=== PATIENT | female | born 1990 | race Caucasian/White ===

== ENCOUNTER 2019-08-25 15:45 | Emergency (ER) | payer SELFPAY ==
[2019-08-25 15:49] VITALS: BP 125/95; PULSE 84; RESP 16; TEMP 36.6; O2SAT 99; BMI 33.8
[2019-08-25 16:11] VITALS: O2SAT 98
[2019-08-25 16:18] LABS: Add Urine Microscopic? NO
[2019-08-25 16:25] LABS: Basophils % 0.2 %; Eosinophils # 0.1 10^3/uL (0.0-0.8); Hematocrit 42.6 % (37.0-47.0); Hemoglobin 13.2 g/dL (11.5-15.3); Lymphocytes % 33.1 %; Mean Corpuscular Hemoglobin 26.7 pg (28.0-34.0); Mean Corpuscular Volume 86.1 fL (81-99); Mean Platelet Volume 10.3 fL (7.4-10.4); Monocytes # 0.5 10^3/uL (0.2-0.9); Monocytes % 5.6 %; Neutrophils # 5.5 10^3/uL (1.8-7.7); Neutrophils % 59.8 %; Nucleated Red Blood Cells % 0 %; Platelet Count 321 10^3/cmm (130-400); Red Blood Count 4.95 10^6/uL (4.1-5.3); Red Cell Distribution Width 12.2 % (12.1-15.1); White Blood Count 9.2 10^3/uL (4.0-10.0)
--- NOTE | 2019-08-25 16:26 | W.ED.ABDPA2 ---
HPI - Abdominal Pain General: Chief Complaint: Abdominal Pain Stated Complaint: RIGHT UPPER ABD PAIN Time Seen by Provider: 08/25/19 16:18 History of Present Illness: HPI narrative: Pt has been having ruq abd pain since last night, states it goes around to the back, and it is much worse after food. No fever or chills. No vomiting but she has been nauseated and having anorexia. Has no appendix MD elicited complaint: abdominal pain Onset (ago): day(s) (1) Pain Consistency: constant Location: RUQ Severity: severe Pain scale (0-10): 7 Quality: sharp Radiation: R flank and back Exacerbating factors: eating and movement Relieving factors: nothing Associated Symptoms: Reports anorexia and nausea; Denies chills and fever(s) Related Data: Date of Last Menstrual Period: 08/01/19 Review of Systems General: Reports: 10 or more systems reviewed and unremarkable except in HPI and below Const: Denies: fever, chills or fatigue ENMT: Denies: throat pain Card: Denies: chest pain or swelling of feet/ankles Resp: Denies: shortness of breath or productive cough GI: Reports: abdominal pain and nausea : Denies: difficulty urinating Musc: Denies: back pain or extremity swelling Skin/Breast: Denies: rash Neuro: Denies: headache, numbness in extremities or weakness in extremities PFSH ED PFSH: Social History Smoking and tobacco status: never smoked Female Reproductive History: Date of last menstrual period: 08/01/19 Physical Exam Const: COMMON NORMALS: no apparent distress and oriented x3 GENERAL APPEARANCE: cooperative; not in distress HENMT: COMMON NORMALS: normocephalic HEAD & SCALP: normal to inspection and normocephalic MOUTH: oral and palatal mucosa normal and lip normal THROAT: posterior oropharynx normal and tonsils normal Neck/C-Spine: COMMON NORMALS: full ROM, no lymphadenopathy, supple and no meningeal signs GENERAL: Yes normal visual inspection and Yes trachea midline Chest: COMMONS NORMALS: inspection of chest normal Resp: COMMON NORMALS: normal respiratory effort and clear to auscultation bilaterally EFFORT & INSPECTION: Yes able to speak in complete sentences and No respiratory distress AUSCULTATION: clear to auscultation bilaterally, no rales, no rhonchi and no wheezes Cardio: COMMON NORMALS: regular rate, regular rhythm, S1 normal heart sound, S2 normal heart sound and no murmurs RATE: regular rate RHYTHM: regular rhythm HEART SOUNDS: S1 normal and S2 normal PERIPHERAL PULSES: radial pulses present and dorsalis pedis pulses present GI: COMMON NORMALS: soft to palpation INSPECTION: Yes normal to inspection AUSCULTATION: Yes hypoactive bowel sounds PALPATION: Yes soft, Yes tender Details: RUQ and No rebound tenderness present RECTAL EXAM: deferred : COMMON NORMALS: Yes no CVA tenderness BLADDER/KIDNEY EXAM: Yes no CVA tenderness Back/Pelvis: COMMON NORMALS: no CVA tenderness Extremity: COMMON NORMALS: normal to inspection, full ROM, normal capillary refill, no calf tenderness and no pedal edema Neuro: COMMON NORMALS: oriented x3, CN's II-XII intact bilaterally, moves all extremities and no focal motor deficits MENINGEAL SIGNS: Yes no meningeal signs Skin: COMMON NORMALS: no rashes or lesions noted GENERAL SKIN EXAM: no rashes or lesions noted Course Vital Signs: Vital signs: Vital Signs Temperature 97.9 F 08/25/19 15:49 Pulse Rate 83 08/25/19 17:56 Respiratory Rate 16 08/25/19 15:49 Blood Pressure 118/74 08/25/19 17:56 Pulse Oximetry 99 08/25/19 17:56 MDM - Abdominal Pain MDM Narrative: Medical decision making narrative: Pt has a gall stone but she is feeling much better, she is tolerating water and jello. I will refer to surgery as an outpt. She will go on a low fat diet and I will send her home with Hydrocodone and zofran. She knows to return if anything worsens. Lab Data: Attestation: I reviewed the patient's lab results. Labs: Lab Results 08/25/19 08/25/19 08/25/19 Range/Units 16:08 16:08 16:08 WBC 9.2 (4.0-10.0) 10^3/ uL RBC 4.95 (4.1-5.3) 10^6/u L Hgb 13.2 (11.5-15.3) g/dL Hct 42.6 (37.0-47.0) % MCV 86.1 (81-99) fL MCH 26.7 L (28.0-34.0) pg MCHC 31.0 (30.0-36.0) g/dL RDW 12.2 (12.1-15.1) % Plt Count 321 (130-400) 10^3/c mm MPV 10.3 (7.4-10.4) fL Neut % (Auto) 59.8 % Lymph % (Auto) 33.1 % [facility] % (Auto) 5.6 % Eos % (Auto) 1.0 % Baso % (Auto) 0.2 % Neut # (Auto) 5.5 (1.8-7.7) 10^3/u L Lymph # (Auto) 3.0 (0.8-4.8) 10^3/u L [facility] # (Auto) 0.5 (0.2-0.9) 10^3/u L Eos # (Auto) 0.1 (0.0-0.8) 10^3/u L Baso # (Auto) 0.0 (0.0-0.1) 10^3/u L Nucleated RBC % (a uto) 0 % Nucleated RBCs # 0.0 /100WBC Sodium (136-145) mmol/L Potassium (3.5-5.1) mmol/L Chloride (98-107) mmol/L Carbon Dioxide (22-29) mmol/L Anion Gap (5-19) BUN (6-20) mg/dL Creatinine (0.5-0.9) mg/dL GFR Calculation (90-130) mL/min Glucose (65-115) mg/dL Calculated Osmolal ity (285-295) mOsm/k g Calcium (8.5-10.5) mg/dL Total Bilirubin (0.15-1.2) mg/dL AST (0-32) U/L ALT (0-33) U/L Alkaline Phosphata se (35-105) IU/L Total Protein (6.6-8.7) g/dL Albumin (3.5-5.2) g/dL Globulin (1.3-4.6) g/dL HCG, Qual Negative (Negative) Urine Color Yellow (Yellow) Urine Appearance Clear (CLEAR) Urine pH 7 (5-7) Ur Specific Gravit y 1.005 (1.005-1.030) Urine Protein Neg (Negative) Urine Glucose (UA) Norm (Normal) Urine Ketones Negative (Negative) Urine Blood Neg (Negative) Urine Nitrate Negative (Negative) Urine Bilirubin Neg (NEGATIVE) Urine Urobilinogen Norm (Negative) mg/dL Ur Leukocyte Myah ase Negative (Negative) 08/25/19 Range/Units 16:08 WBC (4.0-10.0) 10^3/ uL RBC (4.1-5.3) 10^6/u L Hgb (11.5-15.3) g/dL Hct (37.0-47.0) % MCV (81-99) fL MCH (28.0-34.0) pg MCHC (30.0-36.0) g/dL RDW (12.1-15.1) % Plt Count (130-400) 10^3/c mm MPV (7.4-10.4) fL Neut % (Auto) % Lymph % (Auto) % [facility] % (Auto) % Eos % (Auto) % Baso % (Auto) % Neut # (Auto) (1.8-7.7) 10^3/u L Lymph # (Auto) (0.8-4.8) 10^3/u L [facility] # (Auto) (0.2-0.9) 10^3/u L Eos # (Auto) (0.0-0.8) 10^3/u L Baso # (Auto) (0.0-0.1) 10^3/u L Nucleated RBC % (a uto) % Nucleated RBCs # /100WBC Sodium 141 (136-145) mmol/L Potassium 4.0 (3.5-5.1) mmol/L Chloride 104 (98-107) mmol/L Carbon Dioxide 26 (22-29) mmol/L Anion Gap 15.0 (5-19) BUN 9 (6-20) mg/dL Creatinine 0.7 (0.5-0.9) mg/dL GFR Calculation 98.3 (90-130) mL/min Glucose 83 (65-115) mg/dL Calculated Osmolal ity 287 (285-295) mOsm/k g Calcium 10.3 (8.5-10.5) mg/dL Total Bilirubin 0.3 (0.15-1.2) mg/dL AST 36 H (0-32) U/L ALT 27 (0-33) U/L Alkaline Phosphata se 92 (35-105) IU/L Total Protein 8.7 (6.6-8.7) g/dL Albumin 4.9 (3.5-5.2) g/dL Globulin 3.8 (1.3-4.6) g/dL HCG, Qual (Negative) Urine Color (Yellow) Urine Appearance (CLEAR) Urine pH (5-7) Ur Specific Gravit y (1.005-1.030) Urine Protein (Negative) Urine Glucose (UA) (Normal) Urine Ketones (Negative) Urine Blood (Negative) Urine Nitrate (Negative) Urine Bilirubin (NEGATIVE) Urine Urobilinogen (Negative) mg/dL Ur Leukocyte Myah ase (Negative) Discharge Plan Discharge Prescriptions: No Action Tylenol 325 mg Tablet 325 mg PO QID PRN (Reason: Pain) RF: 0 Coding Level of Care Code ED Repair Electric Motor Assembler for Chg Fwd Exam Comprehensive
[2019-08-25 16:34] LABS: Bilirubin Urine Neg (NEGATIVE); Blood Urine Neg (Negative); Glucose Urine UA Norm (Normal); HCG Qualitative Urine. Negative (Negative); Ketones Urine Negative (Negative); Leukocyte Esterase Urine Negative (Negative); Nitrate Urine Negative (Negative); Protein Urine Neg (Negative); Specific Gravity, Urine 1.005 (1.005-1.030); Urine Appearance Clear (CLEAR); Urine Color Yellow (Yellow); Urobilinogen Urine Norm (Negative); pH Urine 7 (5-7)
--- NOTE | 2019-08-25 16:34 | US_ITS ---
WS: [id number] ULTRASOUND ABDOMEN LIMITED CLINICAL INFORMATION: right abd pain COMPARISON: None. FINDINGS: Liver Size: Normal. Craniocaudal length: 14.5 cm. Echogenicity: Normal. Surface nodularity: None. Mass (size and location): None. Bile ducts Intrahepatic ducts: Normal. Common bile duct diameter: 0.4 cm. Gallbladder Large calculus Gallstones: Present Gallbladder sludge: None. Gallbladder wall thickening: None. Pericholecystic fluid: None. Sonographic Segura sign: Absent. Pancreas Normal as visualized. Right kidney: Normal. Hydronephrosis: None. Size: 9.4 cm x 5.0 cm x 4.1 cm. Abdominal aorta and IVC Visualized portions are normal. Ascites: None. US/US gall bladder 75241 IMPRESSION: 1. Normal liver. 2. Large calculus in the gallbladder measuring approximately 2.3 CM. No signif icant gallbladder wall thickening or pericholecystic fluid. 3. Normal common bile duct. 4. No hydronephrosis in the right kidney.
[2019-08-25] MEDS: morphine 4 mg/mL SDV 1 mL IVP (16:44)
[2019-08-25] MEDS: ondansetron 2 mg/ML SDV 2 mL 4 MG IVP (16:44)
[2019-08-25 16:47] VITALS: BP 116/78; PULSE 78; O2SAT 100
[2019-08-25 16:56] LABS: Alanine Aminotransferase 27 U/L (0-33); Albumin Level 4.9 g/dL (3.5-5.2); Alkaline Phosphatase 92 IU/L (35-105); Aspartate Amino Transferase 36 U/L (0-32); Blood Urea Nitrogen 9 mg/dL (6-20); Calcium 10.3 mg/dL (8.5-10.5); Carbon Dioxide 26 mmol/L (22-29); Chloride 104 mmol/L (98-107); Globulin 3.8 g/dL (1.3-4.6); Glomerular Filtration Rate 98.3 mL/min (90-130); Glucose 83 mg/dL (65-115); Osmolality Calculated 287 mOsm/kg (285-295); Sodium 141 mmol/L (136-145); Total Bilirubin 0.3 mg/dL (0.15-1.2); Total Protein 8.7 g/dL (6.6-8.7)
--- NOTE | 2019-08-25 16:57 | PC.NURSE ---
portable ultrasound at bedside
[2019-08-25 17:56] VITALS: BP 118/74; PULSE 83; O2SAT 99
--- NOTE | 2019-08-25 18:04 | PC.NURSE ---
pt given PO clear liquids for PO challenge
[2019-08-25 18:25] VITALS: BP 123/71; PULSE 75; O2SAT 100
--- NOTE | 2019-08-26 14:49 | DCPLANNER ---
underwriting support manager had message to schedule a follow up appointment for patient with [facility]. underwriting support manager called the clinic, spoke with Rafaela, a follow up appointment was scheduled for August at 12:[address] Sauer. Clinic will call patient with appointment information.
--- NOTE | 2019-11-03 15:17 | DCPLANNER ---
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
== END 2019-08-25 18:25 | disposition home or self-care (01) ==
PROVIDERS: Emergency Provider Emergency Medicine; Family Provider Nurse Practitioner; PCP Nurse Practitioner
DX: K80.50 Calculus of bile duct without cholangitis or cholecystitis without obstruction (principal)
CPT/HCPCS: 12345; 76705; 80053; 81003; 81025; 85025; 96374; 96375; 99283; J2270; J2405

== ENCOUNTER 2019-08-26 13:33 | Emergency (ER) | payer SELFPAY ==
[2019-08-26 13:44] VITALS: BP 121/86; PULSE 95; RESP 18; TEMP 36.6; O2SAT 99; BMI 32.8
[2019-08-26 14:26] LABS: HCG Qualitative Urine. Negative (Negative)
[2019-08-26 14:41] LABS: Add Urine Microscopic? NO
[2019-08-26 14:48] LABS: Bilirubin Urine Neg (NEGATIVE); Blood Urine Neg (Negative); Glucose Urine UA Norm (Normal); Ketones Urine Negative (Negative); Leukocyte Esterase Urine Negative (Negative); Nitrate Urine Negative (Negative); Protein Urine Neg (Negative); Urine Appearance Clear (CLEAR); Urine Color Straw (Yellow); Urobilinogen Urine Norm (Negative); pH Urine 7 (5-7)
--- NOTE | 2019-08-26 14:51 | W.ED.ABDPA2 ---
HPI - Abdominal Pain General: Chief Complaint: Abdominal Pain Stated Complaint: abd pain Time Seen by Provider: 08/26/19 14:28 History of Present Illness: HPI narrative: 29-year-old female patient was seen in this emergency department yesterday for the same complaints. At that time her right upper quadrant ultrasound done revealed a gallstone. No cholecystitis at that time. She was discharged home with a prescription for hydrocodone/acetaminophen. Patient states that her pain persists, with eating or drinking anything. She says the pain medicine is not helping at this time. She denies fever, denies vomiting but has nausea. Denies diarrhea. MD elicited complaint: abdominal pain Pertinent past history: other (gall stone) Onset (ago): day(s) (1) Pain Consistency: constant Location: Epigastric and RUQ Severity: severe Quality: sharp Radiation: epigastric Exacerbating factors: eating Relieving factors: nothing Associated Symptoms: Reports anorexia and nausea; Denies chills, dysuria and fever(s) Treatments prior to arrival: prescription analgesics Related Data: Date of Last Menstrual Period: 08/01/19 Review of Systems General: Reports: 10 or more systems reviewed and unremarkable except in HPI and below Const: Denies: fever, chills or body aches Eyes: Denies: change in vision or blurry vision ENMT: Denies: throat pain, enlarged tonsils, painful swallowing, hoarseness, mouth pain or swelling of lips/tongue Card: Reports: chest pain; Denies: palpitations, irregular heart rhythm, edema or swelling of feet/ankles Resp: Denies: shortness of breath, productive cough or non-productive cough GI: Reports: abdominal pain and nausea : Denies: flank pain, difficulty urinating, painful urination, urinary frequency, urinary urgency or urinary hesitancy Musc: Denies: neck pain, back pain or extremity swelling Skin/Breast: Denies: rash, itching or redness Neuro: Denies: headache, numbness in extremities or weakness in extremities Endo: Denies: excessive urination, excessive thirst or tired all the time PFSH ED PFSH: Social History Smoking and tobacco status: never smoked Female Reproductive History: Date of last menstrual period: 08/01/19 Physical Exam Const: COMMON NORMALS: no apparent distress, average body habitus, oriented x3, no limitations, healthy appearing, alert and well nourished HENMT: COMMON NORMALS: normocephalic, head/scalp atraumatic and moist oral mucous membranes HEAD & SCALP: normocephalic and atraumatic Eye: COMMON NORMALS: PERRL, EOMs intact bilaterally, conjunctivae normal and no scleral icterus CONJUNCTIVA: Yes conjunctivae normal PUPIL: Yes PERRL Neck/C-Spine: COMMON NORMALS: full ROM, supple, no meningeal signs, no JVD and no carotid bruits Chest: COMMONS NORMALS: inspection of chest normal and palpation of chest normal Resp: COMMON NORMALS: normal respiratory effort, no retractions, no use of accessory muscles, clear to auscultation bilaterally and percussion normal AUSCULTATION: clear to auscultation bilaterally PERCUSSION: percussion normal Cardio: COMMON NORMALS: no JVD, regular rate, regular rhythm, S1 normal heart sound, S2 normal heart sound, no gallops, no clicks, no murmurs, no rub and peripheral pulses 2+ throughout RATE: regular rate RHYTHM: regular rhythm HEART SOUNDS: S1 normal and S2 normal PERIPHERAL PULSES: pulses 2+ throughout GI: COMMON NORMALS: normal to inspection, nondistended, normoactive bowel sounds, soft to palpation, no hepatosplenomegaly, no masses and no bruits PALPATION: Yes soft, Yes tender (epigastric. Positve Segura's sign) Details: RUQ and Yes no hepatosplenomegaly : COMMON NORMALS: Yes no CVA tenderness BLADDER/KIDNEY EXAM: Yes no CVA tenderness Back/Pelvis: COMMON NORMALS: no CVA tenderness Extremity: COMMON NORMALS: normal to inspection, full ROM, normal capillary refill, no calf tenderness and no pedal edema Neuro: COMMON NORMALS: oriented x3 SENSORIUM/ORIENTATION: Yes alert MENINGEAL SIGNS: Yes no meningeal signs Skin: COMMON NORMALS: no rashes or lesions noted, no wounds, skin turgor normal, no jaundice, no petechiae and no mottling GENERAL SKIN EXAM: no rashes or lesions noted and turgor normal Course Reevaluation(s): Reevaluation #1: Discussed her lab findings with her. White cell count normal, liver enzymes normal, lipase normal. She does not have cholecystitis or pancreatitis. I believe her pain is still secondary to the gallstones. She has an appointment with a surgeon in about a week. She is advised to eat a bland meal until then. She is also advised to double the dose of the hydrocodone until the pain is better. We will give her some Toradol to go home with. She voiced understanding and is in agreement with the plan Time: 16:09 Vital Signs: Vital signs: Vital Signs Temperature 97.9 F 08/26/19 13:44 Pulse Rate 95 08/26/19 13:44 Respiratory Rate 18 08/26/19 13:44 Blood Pressure 121/86 08/26/19 13:44 Pulse Oximetry 99 08/26/19 13:44 MDM - Abdominal Pain MDM Narrative: Medical decision making narrative: 29-year-old female patient with biliary colic. She was seen in the ED for the same thing yesterday and the ultrasound done showed gallstone with no inflammatory changes in her gallbladder. She presents today with continuation of the pain. She is not in distress on examination. Labs are unremarkable with normal white cell count and normal liver enzymes as well as lipase. She is discharged home with a prescription for ketorolac. She has an appointment scheduled to see the surgeon next . She understands that she has this appointment made. She will follow-up as scheduled Medical Records: Attestation: I reviewed the patient's medical records. Lab Data: Labs: Lab Results 08/26/19 08/26/19 08/26/19 Range/Units 14:07 14:07 14:07 WBC (4.0-10.0) 10^3/ uL RBC (4.1-5.3) 10^6/u L Hgb (11.5-15.3) g/dL Hct (37.0-47.0) % MCV (81-99) fL MCH (28.0-34.0) pg MCHC (30.0-36.0) g/dL RDW (12.1-15.1) % Plt Count (130-400) 10^3/c mm MPV (7.4-10.4) fL Neut % (Auto) % Lymph % (Auto) % [place] % (Auto) % Eos % (Auto) % Baso % (Auto) % Neut # (Auto) (1.8-7.7) 10^3/u L Lymph # (Auto) (0.8-4.8) 10^3/u L Sunflower # (Auto) (0.2-0.9) 10^3/u L Eos # (Auto) (0.0-0.8) 10^3/u L Baso # (Auto) (0.0-0.1) 10^3/u L Nucleated RBC % (a uto) % Nucleated RBCs # /100WBC Sodium (136-145) mmol/L Potassium (3.5-5.1) mmol/L Chloride (98-107) mmol/L Carbon Dioxide (22-29) mmol/L Anion Gap (5-19) BUN (6-20) mg/dL Creatinine (0.5-0.9) mg/dL GFR Calculation (90-130) mL/min Glucose (65-115) mg/dL Calculated Osmolal ity (285-295) mOsm/k g Lactate (0.5-2.2) mmol/L Calcium (8.5-10.5) mg/dL Total Bilirubin (0.15-1.2) mg/dL AST (0-32) U/L ALT (0-33) U/L Alkaline Phosphata se (35-105) IU/L Total Protein (6.6-8.7) g/dL Albumin (3.5-5.2) g/dL Globulin (1.3-4.6) g/dL Lipase (13-60) U/L HCG, Qual Negative (Negative) Urine Color Straw (Yellow) Urine Appearance Clear (CLEAR) Urine pH 7 (5-7) Ur Specific Gravit y 1.010 (1.005-1.030) Urine Protein Neg (Negative) Urine Glucose (UA) Norm (Normal) Urine Ketones Negative (Negative) Urine Blood Neg (Negative) Urine Nitrate Negative (Negative) Urine Bilirubin Neg (NEGATIVE) Urine Urobilinogen Norm (Negative) mg/dL Ur Leukocyte Myah ase Negative (Negative) Urine Opiates Scre en Positive H (Negative) ng/mL Ur Barbiturates Sc reen Negative (Negative) ng/mL Ur Phencyclidine S crn Negative (Negative) ng/mL Ur Amphetamines Sc reen Negative (Negative) ng/mL U Benzodiazepines Scrn Negative (Negative) ng/mL Urine Cocaine Scre en Negative (Negative) ng/mL U Marijuana (THC) Screen Negative (Negative) ng/mL 08/26/19 08/26/19 08/26/19 Range/Units 14:45 14:45 14:45 WBC 7.9 (4.0-10.0) 10^3/ uL RBC 4.81 (4.1-5.3) 10^6/u L Hgb 12.9 (11.5-15.3) g/dL Hct 41.6 (37.0-47.0) % MCV 86.5 (81-99) fL MCH 26.8 L (28.0-34.0) pg MCHC 31.0 (30.0-36.0) g/dL RDW 12.2 (12.1-15.1) % Plt Count 308 (130-400) 10^3/c mm MPV 10.0 (7.4-10.4) fL Neut % (Auto) 60.9 % Lymph % (Auto) 31.7 % Sunflower % (Auto) 5.7 % Eos % (Auto) 1.3 % Baso % (Auto) 0.3 % Neut # (Auto) 4.8 (1.8-7.7) 10^3/u L Lymph # (Auto) 2.5 (0.8-4.8) 10^3/u L Sunflower # (Auto) 0.5 (0.2-0.9) 10^3/u L Eos # (Auto) 0.1 (0.0-0.8) 10^3/u L Baso # (Auto) 0.0 (0.0-0.1) 10^3/u L Nucleated RBC % (a uto) 0 % Nucleated RBCs # 0.0 /100WBC Sodium 138 (136-145) mmol/L Potassium 4.1 (3.5-5.1) mmol/L Chloride 103 (98-107) mmol/L Carbon Dioxide 25 (22-29) mmol/L Anion Gap 14.1 (5-19) BUN 8 (6-20) mg/dL Creatinine 0.7 (0.5-0.9) mg/dL GFR Calculation 98.3 (90-130) mL/min Glucose 95 (65-115) mg/dL Calculated Osmolal ity 282 L (285-295) mOsm/k g Lactate 0.9 (0.5-2.2) mmol/L Calcium 9.7 (8.5-10.5) mg/dL Total Bilirubin 0.4 (0.15-1.2) mg/dL AST 30 (0-32) U/L ALT 29 (0-33) U/L Alkaline Phosphata se 80 (35-105) IU/L Total Protein 8.5 (6.6-8.7) g/dL Albumin 4.6 (3.5-5.2) g/dL Globulin 3.9 (1.3-4.6) g/dL Lipase 16 (13-60) U/L HCG, Qual (Negative) Urine Color (Yellow) Urine Appearance (CLEAR) Urine pH (5-7) Ur Specific Gravit y (1.005-1.030) Urine Protein (Negative) Urine Glucose (UA) (Normal) Urine Ketones (Negative) Urine Blood (Negative) Urine Nitrate (Negative) Urine Bilirubin (NEGATIVE) Urine Urobilinogen (Negative) mg/dL Ur Leukocyte Myah ase (Negative) Urine Opiates Scre en (Negative) ng/mL Ur Barbiturates Sc reen (Negative) ng/mL Ur Phencyclidine S crn (Negative) ng/mL Ur Amphetamines Sc reen (Negative) ng/mL U Benzodiazepines Scrn (Negative) ng/mL Urine Cocaine Scre en (Negative) ng/mL U Marijuana (THC) Screen (Negative) ng/mL Discharge Plan Discharge Patient Disposition: Home, Self-Care Clinical Impression: Biliary colic Cholelithiasis Qualifiers: Cholelithiasis location: gallbladder Cholecystitis presence: without cholecystitis Biliary obstruction: without biliary obstruction Qualified Code(s): K80.20 - Calculus of gallbladder without cholecystitis without obstruction Condition: Stable Prescriptions: New ketorolac 10 mg tablet 10 mg PO Q8H PRN (Reason: pain) Qty: 14 RF: 0 Continued Tylenol 325 mg Tablet 325 mg PO QID PRN (Reason: Pain) RF: 0 hydrocodone-acetaminophen 5-325 mg tablet 1 tab PO Q4H PRN (Reason: pain) Qty: 20 RF: 0 Zofran 4 mg tablet 4 mg PO Q8H PRN (Reason: nausea and vomiting) 5 Days Qty: 20 RF: 0 Discharge Orders: Discharge Order (Routine); Ordered 08/26/19 Ordered By: Mike Mejias Referrals: Juancarlos Urias, [facility] [Primary Care Provider] - Sanjay Sauer MD [Physician] - 09/01/19 12:00 pm (as scheduled) Discharge Diet: As Directed Discharge Activity: Increase activity as tolerated Patient Instructions: Cholecystitis (ED), Abdominal Pain (ED) Activity Restrictions/Additional Instructions: Return for any new or worsening symptoms. Follow-up with Dr. Sauer next as scheduled. Eat a bland diet to help with your pain. Take the ketorolac as needed for pain this will help with your gallbladder pain. Coding Level of Care Code ED Information Resource Consultant for Chg Fwd Exam Comprehensive
[2019-08-26 14:55] LABS: Amphetamines Screen Urine Negative (Negative); Barbiturates Screen Urine Negative (Negative); Benzodiazepines Screen Urine Negative (Negative); Cocaine Screen Urine Negative (Negative); Opiate Screen Urine Positive (Negative); PCP Screen Urine Negative (Negative); THC Screen Urine Negative (Negative)
[2019-08-26 14:56] LABS: Basophils % 0.3 %; Eosinophils # 0.1 10^3/uL (0.0-0.8); Eosinophils % 1.3 %; Hematocrit 41.6 % (37.0-47.0); Hemoglobin 12.9 g/dL (11.5-15.3); Lymphocytes # 2.5 10^3/uL (0.8-4.8); Lymphocytes % 31.7 %; Mean Corpuscular Hemoglobin 26.8 pg (28.0-34.0); Mean Corpuscular Volume 86.5 fL (81-99); Monocytes # 0.5 10^3/uL (0.2-0.9); Monocytes % 5.7 %; Neutrophils # 4.8 10^3/uL (1.8-7.7); Neutrophils % 60.9 %; Nucleated Red Blood Cells % 0 %; Platelet Count 308 10^3/cmm (130-400); Red Blood Count 4.81 10^6/uL (4.1-5.3); Red Cell Distribution Width 12.2 % (12.1-15.1); White Blood Count 7.9 10^3/uL (4.0-10.0)
[2019-08-26 15:10] LABS: Alanine Aminotransferase 29 U/L (0-33); Albumin Level 4.6 g/dL (3.5-5.2); Alkaline Phosphatase 80 IU/L (35-105); Anion Gap 14.1 (5-19); Aspartate Amino Transferase 30 U/L (0-32); Blood Urea Nitrogen 8 mg/dL (6-20); Calcium 9.7 mg/dL (8.5-10.5); Carbon Dioxide 25 mmol/L (22-29); Chloride 103 mmol/L (98-107); Globulin 3.9 g/dL (1.3-4.6); Glomerular Filtration Rate 98.3 mL/min (90-130); Glucose 95 mg/dL (65-115); Lactate (Lactic Acid level) 0.9 mmol/L (0.5-2.2); Lipase 16 U/L (13-60); Osmolality Calculated 282 mOsm/kg (285-295); Potassium 4.1 mmol/L (3.5-5.1); Sodium 138 mmol/L (136-145); Total Bilirubin 0.4 mg/dL (0.15-1.2); Total Protein 8.5 g/dL (6.6-8.7)
--- NOTE | 2019-08-26 15:49 | DCPLANNER ---
revenue manager has made an appointment for patient with [facility], due to an order from previous visit. An appointment is scheduled for August at 12:[address] Sauer. revenue manager did inform ED physician and patient about the scheduled appointment with [facility].
[2019-08-26 16:25] VITALS: BP 116/82; PULSE 75; O2SAT 96
== END 2019-08-26 16:25 | disposition home or self-care (01) ==
LOC: ER 16:18
PROVIDERS: Emergency Provider Family Medicine; Family Provider Nurse Practitioner; PCP Nurse Practitioner
DX: K80.20 Calculus of gallbladder without cholecystitis without obstruction (principal)
CPT/HCPCS: 12345; 36415; 80053; 80306; 81003; 81025; 83605; 83690; 85025; 87040; 99282; A9270

== ENCOUNTER 2019-08-31 05:54 | Day surgery (SDC) | payer SELFPAY ==
[2019-08-31] VITALS (8 sets, daily range): BP systolic 93–126; BP diastolic 54–99; PULSE 67–105; RESP 14–18; TEMP 36.9–37.2; O2SAT 93–100; BMI 33.5
[2019-08-31] MEDS: sodium chloride 0.9% 1,000 ML 30 ML IV (06:28)
[2019-08-31 06:29] LABS: OR HCG Qualitative Urine Negative (Negative)
--- NOTE | 2019-08-31 06:29 | P.ANESASSM_ITS ---
Pre-Anesthetic Assessment Pre-Anesthetic Assessment: Height/Weight: Height 1.6 m Weight 85.729 kg Preop Diagnosis: cholelithiasis Proposed Procedure: Operation Date: 08/31/19 07:20 Proposed Procedures p Laparoscopic [place] 78305 K80.20(Not Applicable) - Sanjay Sauer MD Familial anesthetic complications: None Was Beta Lexi taken within 24 hours: N/A Last intake: Intake Last Liquid Date 08/30/19 Last Liquid Time 22:15 Last Solid Date 08/30/19 Last Solid Time 20:30 Social: Social History: No alcohol and No tobacco Exam: Pre-Anes Outpt Exam: alert, oriented x 3, clear to auscultation bilat erally and regular rate & rhythm Airway: Cervical ROM: WNL MP: 3 Dentition: Full Additional comments: receding jaw Pulmonary: Pulmonary: None reported CV/HEM: CV/HEM: None reported : : None reported Hepatic: Hepatic: None reported GI: GI: None reported Metabolic: Metabolic: None reported Musc/skel: Musc/skel: None reported Neuropsych: Neuropsych: None reported Anesthetic Plan: ASA status: 2 Anesthesia: General Risk of > 500 ml blood loss (7ml/kg in children): No Other Pertinent Information: gallstones Meds/Allergies Current Medications: Current Medications Generic Name Dose Route Start Last Admin Trade Name Freq PRN Reason Stop Dose Admin Sodium Chloride 1,000 mls @ 30 ml s/hr 08/31/19 06:30 08/31/19 06:28 Sodium Chloride 0.9% IV 09/01/19 06:29 30 mls/hr .Q24H GERMAN Administration PFSH Anesthesia PFSH: Surgical History (Updated 08/30/19 @ 11:47 by Sanjay Sauer MD) History of appendectomy Hx of elbow surgery left Family History (Updated 08/30/19 @ 11:35 by Kalpana Ibrahim) Other Cancer Diabetes Hypertension Stroke Denies family history of Anesthesia complication Bleeding disorder Lung disease Social History (Updated 08/30/19 @ 11:36 by Kalpana Ibrahim) Smoking and tobacco status: never smoked Alcohol intake: never History of recent travel: No Female Reproductive History: Date of last menstrual period: 08/01/19 Data Anesthesia Cardiac Studies: No Data to Display
--- NOTE | 2019-08-31 06:47 | W.PM.OPSUD ---
Surgery/Procedure H&P Update DATE OF PROCEDURE: August 31, 2019 DATE H&P PERFORMED: 08/30/19 H&P UPDATE INFORMATION: I have reviewed H&P completed within last 30 days, I have examined patient prior to procedure and No changes to prior documentation PREOP DIAGNOSIS: cholelithiasis PLANNED PROCEDURE: Operation Date: 08/31/19 07:20 Proposed Procedures p Laparoscopic Cholecystectomy [place] Open 67167 K80.20(Not Applicable) - Sanjay Sauer MD
--- NOTE | 2019-08-31 07:42 | P.OP_ITS ---
Operative Report Date of procedure: August 31, 2019 Pre-op Diagnosis: cholelithiasis Post-op Diagnosis: Cholelithiasis Procedure Done: Laparoscopic cholecystectomy Pathology: Gallbladder Surgeon: Sanjay Sauer Anesthesia: General Estimated blood loss (mL): 5 Condition: stable Disposition: PACU Procedure: The patient was taken to the operating room and was intubated under general anesthesia. After the antibiotic had been administered, the abdomen was prepped and draped in a sterile manner. Using a #15 blade, a 1 centimeter infraumbilical curvilinear incision was made and using an open Dhaval technique the peritoneal cavity was entered. A 10 millimeter port was placed and 15 millimeters of pneumoperitoneum was created. A 10 millimeter, 30 degrees scope was then introduced. Three 5 millimeter ports were placed in the epigastric, midclavicular and the anterior axillary line two fingerbreadths below the costal margin on the right side under the direct visualization. Ratcheted forceps were introduced into the lateral most port and was used to retract the fundus of the gallbladder cephalad and using forceps the infundibulum of the gallbladder was retracted laterally. Using L-hook cautery the peritoneum overlying the Calot's triangle was opened medially and laterally until the cystic duct and the cystic artery were skeletonized. Dissection was carried along the body of the gallbla dder and after ensuring critical view of safety, 4 clips applied on the cystic duct and 3 clips applied on the cystic artery and cut leaving, 3 clips on the remaining portion of the duct and 2 clips on the remaining portion of the artery. The rest of the gallbladder was dissected off the liver using L-hook cautery. There was no bleeding or bile leaking noted from the gallbladder fossa and the clips appeared to be in place. An EndoCatch bag was introduced to remove the gallbladder. All the ports were removed under direct visualization and there was no bleeding noted from the port sites. The fascia of the umbilicus was closed using [id number] 0 Vicryl sutures and the subcutaneous tissue was approximated using 3-0 Vicryl sutures. The skin at all four ports were closed using 4-0 Monocryl and Dermabond. A total of 10 millimeters of 0.5% Marcaine was infiltrated around the port sites. The patient was stable throughout the procedure.
[2019-08-31] MEDS: fentaNYL 50 mcg/mL INJ 2mL IVP (08:30)
[2019-08-31] MEDS: HYDROcodone-acetaminophen 5-325 mg Tablet 1 TAB PO (09:00)
== END 2019-08-31 09:30 | disposition home or self-care (01) ==
PROVIDERS: Anesthesiology; Family Provider Nurse Practitioner; PCP Nurse Practitioner; Visit Provider Surgery
PROC: 0FT44ZZ Resection of Gallbladder, Percutaneous Endoscopic Approach (ICD-10-PCS; CPT 47562; principal; 2019-08-31 07:00)
DX: K80.10 Calculus of gallbladder with chronic cholecystitis without obstruction (principal); Z82.49 Family history of ischemic heart disease and other diseases of the circulatory system; Z83.3 Family history of diabetes mellitus; Z82.3 Family history of stroke
CPT/HCPCS: 47562; 12345; 81025; 84703; 88304; 96374; J0690; J2001; J2250; J2405; J2704; J2710; J3010; J3490; J7030

== ENCOUNTER 2019-11-03 10:11 | Emergency (ER) | payer OTHER, SELFPAY ==
[2019-11-03 10:12] VITALS: BMI 31.8
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
[2019-11-03 10:17] VITALS: BP 127/93; PULSE 73; RESP 16; TEMP 36.8; O2SAT 100
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
[2019-11-03 10:40] VITALS: O2SAT 94
--- NOTE | 2019-11-03 11:07 | PC.NURSE ---
pt ambulated to restroom with minimal difficulty
[2019-11-03 11:35] VITALS: BP 119/66; PULSE 89; O2SAT 97
== END 2019-11-03 11:35 | disposition home or self-care (01) ==
PROVIDERS: Emergency Provider Family Medicine; Family Provider Nurse Practitioner; PCP Nurse Practitioner
DX: S13.4XXA Sprain of ligaments of cervical spine, initial encounter (principal); S80.02XA Contusion of left knee, initial encounter; V89.2XXA Person injured in unspecified motor-vehicle accident, traffic, initial encounter
CPT/HCPCS: 12345; 72040; 73564; 99282; 99283; E0114

== ENCOUNTER → 2019-12-08 11:42 | Outpatient (BNVA) | payer SELFPAY | PROVIDERS: Family Provider Nurse Practitioner; PCP Nurse Practitioner; Visit Provider Nurse Practitioner | DX: N91.1 Secondary amenorrhea (principal) | CPT/HCPCS: 81025 ==

== ENCOUNTER 2019-12-20 11:03 | Outpatient (CLI) | payer SELFPAY ==
--- NOTE | 2019-12-20 11:00 | US_ITS ---
WS: [id number] TRANSABDOMINAL PELVIC AND TRANSVAGINAL PELVIC ULTRASOUND HISTORY: LMP 10/03/19 with negative HCG urine COMPARISON: None available. Uterus: 6.3 cm x 4.2 cm x 3.5 cm. Normal size anteverted uterus. No fibroid or mass. Endometrium: 0.6 cm. Normal homogeneity throughout the endometrium. Right ovary: 3.4 cm x 3.7 cm x 2.6 cm. Normal size RIGHT ovary. There are several small follicles. Th e largest with a maximum diameter of 1.7 cm. No solid mass. Normal vascularity. There is a very small amount of free fluid adjacent to the ovary. Left ovary: 3.2 cm x 3.0 cm x 1.6 cm. Normal size ovary with small follicles. Small amount of free fluid in the pelvis extends to the RIGHT adnexa. US/US pelvic with transvaginal IMPRESSION: 1. Small amount of free fluid in the RIGHT adnexa and cul-de-sac. 2. Normal endometrium. 3. Bilateral ovarian follicles. No mass.
== END 2019-12-20 11:04 | disposition home or self-care (01) ==
PROVIDERS: Family Provider Nurse Practitioner; PCP Nurse Practitioner; Visit Provider Nurse Practitioner
DX: N91.1 Secondary amenorrhea (principal)
CPT/HCPCS: 76830; 76856

== ENCOUNTER → 2019-12-28 09:34 | Outpatient (BNVA) | payer OTHER, SELFPAY | PROVIDERS: Family Provider Nurse Practitioner; PCP Nurse Practitioner; Visit Provider Nurse Practitioner | DX: M54.6 Pain in thoracic spine (principal); M54.9 Dorsalgia, unspecified | CPT/HCPCS: 72072; 72100 ==

== ENCOUNTER 2020-01-11 06:00 | Outpatient (RCR) | payer OTHER, SELFPAY | END 2020-01-16 23:59 | disposition home or self-care (01) | LOC: TPT 06:00 | PROVIDERS: PCP Nurse Practitioner; Referring Provider Nurse Practitioner; Visit Provider Nurse Practitioner | DX: M54.6 Pain in thoracic spine (principal) | CPT/HCPCS: 97110; 97161 ==

== ENCOUNTER 2020-01-17 06:00 | Outpatient (RCR) | payer OTHER, SELFPAY | END 2020-02-01 23:00 | disposition home or self-care (01) | LOC: TPT 06:00 | PROVIDERS: PCP Nurse Practitioner; Referring Provider Nurse Practitioner; Visit Provider Nurse Practitioner | DX: M54.6 Pain in thoracic spine (principal) | CPT/HCPCS: 97110 ==

== ENCOUNTER 2020-11-13 22:02 | Emergency (ER) | payer SELFPAY ==
[2020-11-13 22:11] VITALS: BP 123/81; PULSE 80; RESP 16; TEMP 36.6; O2SAT 99; BMI 32.9
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
[2020-11-13] MEDS: diphenhydrAMINE 50 mg Capsule PO (22:39)
[2020-11-13] MEDS: predniSONE 20 mg Tablet 60 MG PO (22:39)
[2020-11-13 22:41] VITALS: RESP 18
[2020-11-13 22:44] VITALS: BP 134/94; PULSE 84; RESP 18; O2SAT 98
== END 2020-11-13 22:58 | disposition home or self-care (01) ==
PROVIDERS: Emergency Provider Emergency Medicine; PCP Nurse Practitioner
DX: L24.9 Irritant contact dermatitis, unspecified cause (principal)
CPT/HCPCS: 99283; J7512; Q0163

== ENCOUNTER 2021-05-27 22:05 | Emergency (ER) | payer MEDICAID, SELFPAY ==
[2021-05-27 22:08] VITALS: BP 152/88; PULSE 88; RESP 16; TEMP 36; O2SAT 99; BMI 32.9
[2021-05-27 22:36] LABS: Add Urine Microscopic? NO; Charge for UA Resulting for Rev
[2021-05-27 22:47] LABS: Bilirubin Urine Neg (Negative); Blood Urine Neg (Negative); Glucose Urine UA Norm (Normal); Ketones Urine Negative (Negative); Leukocyte Esterase Urine Negative (Negative); Nitrate Urine Negative (Negative); Protein Urine Neg (Negative); Specific Gravity, Urine 1.005 (1.005-1.030); Urine Appearance Clear (CLEAR); Urine Color Colorless (Yellow); Urobilinogen Urine Norm (Negative); pH Urine 7 (5-7)
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
[2021-05-27] MEDS: HYDROcodone-acetaminophen 5-325 mg Tablet 1 TAB PO (23:46)
[2021-05-27 23:53] VITALS: BP 108/72; PULSE 78; RESP 16; O2SAT 98
== END 2021-05-27 23:54 | disposition home or self-care (01) ==
PROVIDERS: Emergency Provider Nurse Practitioner Family; PCP Nurse Practitioner
DX: Z04.1 Encounter for examination and observation following transport accident (principal); V89.2XXA Person injured in unspecified motor-vehicle accident, traffic, initial encounter
CPT/HCPCS: 72072; 72100; 81003; 81025; 99283

== ENCOUNTER 2021-07-01 21:07 | Emergency (ER) | payer MEDICAID, SELFPAY ==
[2021-07-01 21:15] VITALS: BP 129/78; PULSE 99; RESP 16; O2SAT 99; BMI 34.0
[2021-07-01 22:20] LABS: Add Urine Microscopic? NO; Charge for UA Resulting for Rev
[2021-07-01 22:23] LABS: Bilirubin Urine Neg (Negative); Blood Urine Neg (Negative); Glucose Urine UA Norm (Normal); Ketones Urine Negative (Negative); Leukocyte Esterase Urine Negative (Negative); Nitrate Urine Negative (Negative); Protein Urine Neg (Negative); Specific Gravity, Urine 1.005 (1.005-1.030); Urine Appearance Clear (CLEAR); Urine Color Yellow (Yellow); Urobilinogen Urine Norm (Negative); pH Urine 7 (5-7)
[2021-07-02 02:04] LABS: Basophils % 0.2 %; Eosinophils # 0.1 10^3/uL (0.0-0.8); Eosinophils % 1.1 %; Hematocrit 39.4 % (37.0-47.0); Hemoglobin 12.5 g/dL (11.5-15.3); Lymphocytes # 3.4 10^3/uL (0.8-4.8); Mean Corpuscular HGB Conc 31.7 g/dL (30.0-36.0); Mean Corpuscular Hemoglobin 27.2 pg (28.0-34.0); Mean Corpuscular Volume 85.8 fl (81-99); Mean Platelet Volume 10.1 fL (7.4-10.4); Monocytes # 0.6 10^3/uL (0.2-0.9); Monocytes % 4.8 %; Neutrophils # 8.36 10^3/uL (1.8-7.7); Neutrophils % 66.6 %; Nucleated Red Blood Cells % 0 %; Platelet Count 313 10^3/cmm (130-400); Red Blood Count 4.59 10^6/uL (4.1-5.3); Red Cell Distribution Width 12.6 % (12.1-15.1); White Blood Count 12.6 10^3/uL (4.0-10.0)
--- NOTE | 2021-07-02 02:04 | CTR_ITS ---
PROCEDURE INFORMATION: Exam: CT Abdomen And Pelvis With Contrast Exam date and time: 07/02/2021 2:04 AM Age: 31 years old Clinical indication: Nausea; Abdominal pain; Periumbilical; Prior surgery; Surgery date: 6+ months; Surgery type: Gb, appy; Additional info: Abd pain TECHNIQUE: Imaging protocol: Computed tomography of the abdomen and pelvis with contrast. Radiation optimization: All CT scans at this facility use at least one of these dose optimization techniques: automated exposure control; mA and/or kV adjustment per patient size (includes targeted exams where dose is matched to clinical indication); or iterative reconstruction. Contrast material: OMNI 300; Contrast volume: 95 ml; Contrast route: INTRAVENOUS (IV); COMPARISON: US pelvic with transvaginal 12/20/2019 10:59 AM RADIATION DOSE METRICS: Total DLP (mGy-cm): 1758.71 FINDINGS: Liver: Normal. No mass. Gallbladder and bile ducts: The gallbladder has been surgically removed. Pancreas: Normal. No ductal dilation. Spleen: Normal. No splenomegaly. Adrenal glands: There is a 2.6 cm mass in the left adrenal gland. The right adrenal gland is unremarkable. Kidneys and ureters: Normal. No hydronephrosis. Stomach and bowel: Unremarkable. No obstruction. No mucosal thickening. Appendix: There has been an appendectomy. Intraperitoneal space: Unremarkable. No free air. No significant fluid collection. Vasculature: Unremarkable. No abdominal aortic aneurysm. Lymph nodes: Unremarkable. No enlarged lymph nodes. Urinary bladder: Unremarkable as visualized. Reproductive: Unremarkable as visualized. Bones/joints: There is a 1.5 cm rounded sclerotic lesion in the left iliac bone. No fracture or dislocation. Soft tissues: Unremarkable. CT/CT abdomen pelvis w con* [id number] IMPRESSION: 1. Nonspecific left adrenal mass. Further evaluation with contrast enhanced abdomen MRI is recommended. 2. Nonspecific rounded sclerotic lesion in the left iliac bone. Clinical correlation is recommended.
--- NOTE | 2021-07-02 02:05 | ED_ITS ---
HPI - Abdominal Pain General: Chief Complaint: Abdominal Pain Stated Complaint: Lower ABD Pain Time Seen by Provider: 07/02/21 01:56 Source: patient Mode of arrival: ambulatory Limitations: no limitations History of Present Illness: 31-year-old female states that over the last 2 days she has been having lower abdominal pain mixed mainly in the left lower quadrant, some bloating and feeling nauseous. States pain sharp in nature rates it a 7 out of 10. She denies any diarrhea denies any vaginal discharge her last menstruation was May 14. She denies any worsening or improving factors. Associated Symptoms: Reports nausea; Denies chills, diarrhea, dysuria, fever(s) and vomiting Related Data: Date of Last Menstrual Period: 05/14/21 Review of Systems Const: Denies: fever(s), chills, body aches or change in appetite Eyes: Denies: blurry vision or eye discomfort ENMT: Denies: throat pain or dental pain Card: Denies: chest pain Resp: Denies: dyspnea GI: Reports: abdominal pain and nausea; Denies: vomiting or diarrhea : Denies: dysuria Musc: Denies: neck pain or back pain Skin/Breast: Denies: rash Neuro: Denies: headache(s) Psych: Denies: depression Anjel/Lymph: Denies: easy bruising All/Imm: Denies: urticaria PFSH ED PFSH: Medical History (Updated 07/02/21 @ 04:34 by Lam Hamilton MD) Class 1 obesity with body mass index (BMI) of 32.0 to 32.9 in adult Surgical History History of appendectomy Hx of elbow surgery left Status post laparoscopic cholecystectomy Family History Other Cancer Diabetes Hypertension Stroke Denies family history of Anesthesia complication Bleeding disorder Lung disease Social History Second hand smoke exposure: No Smoking risk assessment/counseling performed?: No Alcohol intake: never Desire information about alcohol rehabilitation?: No Counseling given: No Desire information about substance/drug rehabilitation?: No Counseling given: No Adopted: No Caregiver/support person: Yes Lives independently: Yes Household members: spouse and children Housing: Manufactured/Mobile home Marital status: Number of children: 1 service: No Current occupational status: unemployed History of recent travel: No Current gender identity: Female Female Reproductive History: Date of last menstrual period: 05/14/21 Para: 1 Physical Exam Const: COMMON NORMALS: no acute distress, patient oriented x3 and healthy appearing HENMT: COMMON NORMALS: normocephalic and atraumatic HEAD & SCALP: normocephalic and atraumatic Eye: COMMON NORMALS: Equal, round and reactive pupils present and EOMs intact bilaterally PUPIL: Yes Equal, round and reactive pupils present Neck/C-Spine: COMMON NORMALS: full ROM and supple Chest: COMMONS NORMALS: normal inspection of the chest and normal palpation of entire chest wall Resp: COMMON NORMALS: normal respiratory effort, No retractions, No use of accessory muscles and clear to auscultation bilaterally AUSCULTATION: clear to auscultation bilaterally Cardio: COMMON NORMALS: regular rate, regular rhythm and No murmurs present (Cardio) RATE: regular rate RHYTHM: regular rhythm GI: COMMON NORMALS: Normal to inspection, nondistended, normoactive bowel sounds present, Soft to palpation and no masses PALPATION: Yes Soft to palpation and Yes Tenderness to palpation present (GI) Details: LLQ Extremity: COMMON NORMALS: normal to inspection and full ROM Neuro: COMMON NORMALS: patient oriented x3, moves all extremities and no focal motor deficits Psych: COMMON NORMALS: mental status grossly normal, Normal thought process present and cooperative THOUGHT PROCESS: Normal thought process present Skin: COMMON NORMALS: no rashes or lesions noted and no wounds GENERAL SKIN EXAM: no rashes or lesions noted Course Vital Signs: Vital signs: Vital Signs Pulse Rate 99 07/01/21 21:15 Respiratory Rate 16 07/02/21 02:16 Blood Pressure 129/78 07/01/21 21:15 Pulse Oximetry 99 07/01/21 21:15 MDM - Abdominal Pain Medical Decision Making Patient presents with abdominal pain is much improved here exam at discharge is benign with no tenderness did inform her of the findings of her CT scan with some sclerosing in her pelvis along with an adrenal mass informed her she needs a follow-up with her PCP urgently and needs a repeat MRI she understands this we will write her pain meds she is to return to the ER if she is worsening Lab Data : 07/02/21 02:00 07/02/21 02:00 Labs/Radiology: Radiology Impressions Abdomen/Pelvis CT 07/02/21 02:04 IMPRESSION: 1. Nonspecific left adrenal mass. Further evaluation with contrast enhanced abdomen MRI is recommended. 2. Nonspecific rounded sclerotic lesion in the left iliac bone. Clinical correlation is recommended. Laboratory Results WBC 12.6 10^3/uL (4.0-10.0) H 07/02/21 02:00 RBC 4.59 10^6/uL (4.1-5.3) 07/02/21 02:00 Hgb 12.5 g/dL (11.5-15.3) 07/02/21 02:00 Hct 39.4 % (37.0-47.0) 07/02/21 02:00 MCV 85.8 fl (81-99) 07/02/21 02:00 MCH 27.2 pg (28.0-34.0) L 07/02/21 02:00 MCHC 31.7 g/dL (30.0-36.0) 07/02/21 02:00 RDW 12.6 % (12.1-15.1) 07/02/21 02:00 Plt Count 313 10^3/cmm (130-400) 07/02/21 02:00 MPV 10.1 fL (7.4-10.4) 07/02/21 02:00 Neut % (Auto) 66.6 % 07/02/21 02:00 Lymph % (Auto) 27.0 % 07/02/21 02:00 Carson % (Auto) 4.8 % 07/02/21 02:00 Eos % (Auto) 1.1 % 07/02/21 02:00 Baso % (Auto) 0.2 % 07/02/21 02:00 Neut # (Auto) 8.36 10^3/uL (1.8-7.7) H 07/02/21 02:00 Lymph # (Auto) 3.4 10^3/uL (0.8-4.8) 07/02/21 02:00 Carson # (Auto) 0.6 10^3/uL (0.2-0.9) 07/02/21 02:00 Eos # (Auto) 0.1 10^3/uL (0.0-0.8) 07/02/21 02:00 Baso # (Auto) 0.0 10^3/uL (0.0-0.1) 07/02/21 02:00 Nucleated RBC % (auto) 0 % 07/02/21 02:00 Nucleated RBCs # 0.0 /100WBC 07/02/21 02:00 Sodium 138 mmol/L (136-145) 07/02/21 02:00 Potassium 3.8 mmol/L (3.5-5.1) 07/02/21 02:00 Chloride 104 mmol/L (98-107) 07/02/21 02:00 Carbon Dioxide 24 mmol/L (22-29) 07/02/21 02:00 Anion Gap 13.8 (5-19) 07/02/21 02:00 BUN 14 mg/dL (6-20) 07/02/21 02:00 Creatinine 0.7 mg/dL (0.5-0.9) 07/02/21 02:00 GFR Calculation 97.0 mL/min (90-130) 07/02/21 02:00 Glucose 107 mg/dL (65-115) 07/02/21 02:00 Calculated Osmolality 287 mOsm/kg (285-295) 07/02/21 02:00 Calcium 8.7 mg/dL (8.5-10.5) 07/02/21 02:00 Total Bilirubin 0.2 mg/dL (0.15-1.2) 07/02/21 02:00 AST 15 U/L (0-32) 07/02/21 02:00 ALT 15 U/L (0-33) 07/02/21 02:00 Alkaline Phosphatase 85 IU/L (35-105) 07/02/21 02:00 Total Protein 7.7 g/dL (6.6-8.7) 07/02/21 02:00 Albumin 4.7 g/dL (3.5-5.2) 07/02/21 02:00 Globulin 3.0 g/dL (1.3-4.6) 07/02/21 02:00 Lipase 36 U/L (13-60) 07/02/21 02:00 HCG, Qual Negative (Negative) 07/02/21 02:00 Urine Color Yellow (Yellow) 07/01/21 22:15 Urine Appearance Clear (CLEAR) 07/01/21 22:15 Urine pH 7 (5-7) 07/01/21 22:15 Ur Specific [place] 1.005 (1.005-1.030) 07/01/21 22:15 Urine Protein Neg (Negative) 07/01/21 22:15 Urine Glucose (UA) Norm (Normal) 07/01/21 22:15 Urine Ketones Negative (Negative) 07/01/21 22:15 Urine Blood Neg (Negative) 07/01/21 22:15 Urine Nitrate Negative (Negative) 07/01/21 22:15 Urine Bilirubin Neg (Negative) 07/01/21 22:15 Urine Urobilinogen Norm mg/dL (Negative) 07/01/21 22:15 Ur Leukocyte Esterase Negative (Negative) 07/01/21 22:15 Discharge Plan Discharge Patient Disposition: Home Clinical Impression: Adrenal mass Abdominal pain Qualifiers: Abdominal location: left lower quadrant Qualified Code(s): R10.32 - Left lower quadrant pain Condition: Stable Prescriptions: New hydrocodone-acetaminophen 5-325 mg tablet 1 tab PO Q6H PRN (Reason: pain) Qty: 14 0RF ondansetron 4 mg tablet,disintegrating 4 mg PO Q6H PRN (Reason: nausea and vomiting) Qty: 14 0RF No Action meloxicam 15 mg tablet 15 mg PO DAILY Qty: 30 0RF cyclobenzaprine 10 mg tablet See Rx Instructions PO TID PRN (Reason: muscle spasm) Qty: 30 0RF Rx Instructions: 1/2 to 1 tablet PO three times daily PRN; hydrocodone-acetaminophen 5-325 mg tablet 1 tab PO Q6H PRN (Reason: pain) Qty: 7 0RF Discharge Orders: Discharge ED (Routine); Ordered 07/02/21 Ordered By: Lam Hamilton Referrals: Juancarlos Urias, [facility] [Primary Care Provider] - 1-3 days Discharge Diet: Advance as tolerated Discharge Activity: Resume usual activity Patient Instructions: Abdominal Pain (ED), Opioid Safety Coding Level of Care Code ED Service Delivery Supervisor for Chg Fwd Exam Comprehensive
[2021-07-02] MEDS: ondansetron 2 mg/ML SDV 2 mL 4 MG IVP (02:15)
[2021-07-02 02:16] VITALS: RESP 16
[2021-07-02] MEDS: morphine 4 mg/mL SDV 1 mL IVP (02:16)
[2021-07-02 02:27] LABS: Alanine Aminotransferase 15 U/L (0-33); Albumin Level 4.7 g/dL (3.5-5.2); Alkaline Phosphatase 85 IU/L (35-105); Anion Gap 13.8 (5-19); Aspartate Amino Transferase 15 U/L (0-32); Blood Urea Nitrogen 14 mg/dL (6-20); Calcium 8.7 mg/dL (8.5-10.5); Carbon Dioxide 24 mmol/L (22-29); Chloride 104 mmol/L (98-107); Glucose 107 mg/dL (65-115); HCG, Serum Qual Negative (Negative); Lipase 36 U/L (13-60); Osmolality Calculated 287 mOsm/kg (285-295); Potassium 3.8 mmol/L (3.5-5.1); Sodium 138 mmol/L (136-145); Total Bilirubin 0.2 mg/dL (0.15-1.2); Total Protein 7.7 g/dL (6.6-8.7)
[2021-07-02] MEDS: iohexol 300 mg/mL 100 mL Btl IV (03:14)
[2021-07-02 04:49] VITALS: PULSE 63; RESP 16; O2SAT 97
== END 2021-07-02 04:50 | disposition home or self-care (01) ==
PROVIDERS: Emergency Provider Emergency Medicine; PCP Nurse Practitioner
DX: R10.32 Left lower quadrant pain (principal)
CPT/HCPCS: 74177; 80053; 81003; 83690; 84703; 85025; 96374; 96375; 99283; J2270; J2405; Q9967

== ENCOUNTER → 2021-09-19 15:17 | Outpatient (BNVA) | payer BC, MEDICAID, SELFPAY | PROVIDERS: PCP Nurse Practitioner Family; Visit Provider Nurse Practitioner Family | DX: E27.8 Other specified disorders of adrenal gland (principal); N93.9 Abnormal uterine and vaginal bleeding, unspecified; E16.2 Hypoglycemia, unspecified | CPT/HCPCS: 80053; 81025; 83001; 83036; 84144; 84439; 84443; 85025 ==

== ENCOUNTER → 2021-11-22 09:14 | Outpatient (BNVA) | payer BC, MEDICAID, SELFPAY | PROVIDERS: PCP Nurse Practitioner Family; Visit Provider Obstetrics & Gynecology | DX: N93.9 Abnormal uterine and vaginal bleeding, unspecified (principal); Z12.4 Encounter for screening for malignant neoplasm of cervix | CPT/HCPCS: 83036; 83525; 84443; 85025; 87624; 88305 ==

== ENCOUNTER → 2021-12-13 08:59 | Outpatient (BNVA) | payer BC, MEDICAID, SELFPAY | PROVIDERS: PCP Nurse Practitioner Family; Visit Provider Obstetrics & Gynecology | DX: N93.9 Abnormal uterine and vaginal bleeding, unspecified (principal) | CPT/HCPCS: 76830 ==

== ENCOUNTER 2022-01-07 14:52 | Observation (INO) | payer BC, MEDICAID, SELFPAY ==
[2022-01-07] VITALS (15 sets, daily range): BP systolic 97–140; BP diastolic 63–94; PULSE 70–104; RESP 14–18; TEMP 36.2–37.1; O2SAT 94–100
[2022-01-07] MEDS: CELEcoxib 200 mg Capsule 400 MG PO (10:27)
[2022-01-07] MEDS: gabapentin 300 mg Capsule PO (10:27)
[2022-01-07] MEDS: scopolamine 1.5 Patch 1 PATCH TRANSDERMA (10:27)
[2022-01-07] MEDS: phenazopyridine 100 mg Tablet 200 MG PO (10:27)
[2022-01-07] MEDS: sodium chloride 0.9% 1,000 ML 30 ML IV (10:28)
--- NOTE | 2022-01-07 10:37 | ANES.PREANE2 ---
Pre-Anesthetic Assessment Height/Weight: Height 1.6 m Weight 88.904 kg Temp Pulse Resp BP Pulse Ox O2 Del Method 97.9 F 85 18 140/94 96 01/07/22 10:19 01/07/22 10:19 01/07/22 10:19 01/07/22 10:19 01/07/22 10:19 01/07/22 10:22 Preop Diagnosis: aub, uterine prolapse Operation Date: 01/07/22 11:10 Proposed Procedures p Laparoscopic assisted vaginal hysterectomy, bilateral salpingectomy 93376,N93.9(Not Applicable) - Jailyn Ye MD s Salpingectomy(Bilateral) - Jailyn Ye MD Familial anesthetic complications: None Was Beta Lexi taken within 24 hours: N/A Was Clonidine taken within 24 hours: N/A Last intake: Intake Last Liquid Date 01/06/22 Last Liquid Time 21:00 Last Solid Date 01/06/22 Last Solid Time 21:00 Social No alcohol and No tobacco Exam alert, oriented x 3, clear to auscultation bilaterally and regular rate & rhythm Airway Submandibular: within normal limits Cervical ROM: within normal limits Mallampati: Class I Dentition: full History/ROS No significant complaints Pulmonary None reported CV/HEM None reported Uterine prolapse Left adrenal mass - Denies flushing, diarrhea, palpitations, headache, hypertensive crisis Hepatic None reported GI None reported Metabolic None reported Musc/skel Osteoarthritis/DJD Thoracic spine pain Neuropsych None reported Anesthetic Plan ASA status: 2 Anesthesia: Anesthesia Evaluation and General Other: We discussed risk and benefits of general anesthesia including PONV, sore throat (sometimes severe), corneal abrasion, positioning and peripheral nerve injuries, life threatening allergic reaction, post operative ICU admission requiring prolonged intubation, stroke, heart attack, , and rare incidences of recall. Patient consents to proceed with general anesthesia. Risk of > 500 ml blood loss (7ml/kg in children): No Medications/Allergies Home Medications Medication Instructions Recorded Confirmed Last Taken Type No Known Home Medications 01/06/22 01/06/22 Unknown History Allergies Allergy/AdvReac Type Severity Reaction Status Date / Time latex Allergy ALGY-Hives Verified 12/30/21 09:45 Current Medications Generic Name Dose Route Start Last Admin Trade Name Freq PRN Reason Stop Dose Admin Sodium Chloride 1,000 mls @ 30 mls/hr 01/07/22 10:15 01/07/22 10:28 Sodium Chloride 0.9% IV 01/08/22 10:14 30 mls/hr .Q24H GERMAN Administration PFSH Anesthesia Medical History Class 1 obesity with body mass index (BMI) of 32.0 to 32.9 in adult Mass of left adrenal gland Surgical History History of appendectomy Hx of elbow surgery left Status post laparoscopic cholecystectomy Family History Family/Other Breast cancer Maternal aunt Hypertension Maternal and Paternal aunt Mother Diabetes Father Diabetes Grandmother Stroke Maternal Denies family history of CAD (coronary artery disease) Clotting disorder Hyperlipidemia Chronic kidney disease (CKD) Anesthesia complication Bleeding disorder Lung disease Thyroid disease Female Reproductive History Date of last menstrual period: 11/29/21 Para: 1 Data Anesthesia : 01/07/22 10:40 01/07/22 10:40 Cardiac Studies: No Data to Display
[2022-01-07] MEDS: acetaminophen 1,000 MG/100 ML PIGGYBACK 400 MG IV (10:45)
[2022-01-07 10:56] LABS: Basophils % 0.2 %; Eosinophils # 0.1 10^3/uL (0.0-0.8); Eosinophils % 1.6 %; Lymphocytes # 2.5 10^3/uL (0.8-4.8); Lymphocytes % 29.7 %; Mean Corpuscular HGB Conc 31.7 g/dL (30.0-36.0); Mean Corpuscular Hemoglobin 27.3 pg (28.0-34.0); Mean Corpuscular Volume 86.1 fl (81-99); Mean Platelet Volume 10.2 fL (7.4-10.4); Monocytes # 0.4 10^3/uL (0.2-0.9); Neutrophils # 5.27 10^3/uL (1.8-7.7); Neutrophils % 63.3 %; Nucleated Red Blood Cells % 0 %; Platelet Count 308 10^3/cmm (130-400); Red Blood Count 4.76 10^6/uL (4.1-5.3); Red Cell Distribution Width 12.5 % (12.1-15.1); White Blood Count 8.3 10^3/uL (4.0-10.0)
[2022-01-07 11:11] LABS: OR HCG Qualitative Urine Negative (Negative)
[2022-01-07 11:25] LABS: Anion Gap 13.2 (5-19); Blood Urea Nitrogen 10 mg/dL (6-20); Calcium 9.8 mg/dL (8.5-10.5); Carbon Dioxide 28 mmol/L (22-29); Chloride 103 mmol/L (98-107); Glomerular Filtration Rate 115.9 mL/min (90-130); Glucose 96 mg/dL (65-115); Osmolality Calculated 289 mOsm/kg (285-295); Potassium 4.2 mmol/L (3.5-5.1); Sodium 140 mmol/L (136-145)
--- NOTE | 2022-01-07 12:23 | W.PM.OPSUD ---
Surgery/Procedure H&P Update DATE OF PROCEDURE: January 07, 2022 DATE H&P PERFORMED: 12/30/21 H&P UPDATE INFORMATION: I have reviewed H&P completed within last 30 days, I have examined patient prior to procedure and No changes to prior documentation PREOP DIAGNOSIS: aub, uterine prolapse PLANNED PROCEDURE: Operation Date: 01/07/22 11:10 Proposed Procedures p Laparoscopic assisted vaginal hysterectomy, bilateral salpingectomy 38899,N93.9(Not Applicable) - Jailyn Ye MD s Salpingectomy(Bilateral) - Jailyn Ye MD Related Problem List Diagnoses (1) Uterine prolapse: (2) Abnormal uterine bleeding:
[2022-01-07] MEDS: ceFAZolin 2,000 MG in sodium chloride 0.9% (plus) 50 ML 100 MG IV ×2 (13:04→21:41)
[2022-01-07] MEDS: vasopressin 20 unit/mL INJ INJECTION (14:04)
[2022-01-07] MEDS: sodium chloride 0.9% 100 mL Bag 10 ML XX (14:11)
--- NOTE | 2022-01-07 14:57 | P.OP_ITS ---
Operative Report Date of procedure: January 07, 2022 Pre-op diagnosis: Preop Diagnosis aub, uterine prolapse Post-op diagnosis: same Post-op findings: 6 week sized uterus, normal appearing tubes and ovaries Procedure done: LAVH, bilateral salpingectomy Specimens removed/disposition: uterus, bilateral fallopian tubes to pathology Surgeon: Jailyn Ye Anesthesia: General Estimated blood loss (mL): 100 IV fluids (mL): 800 Urine output (mL): 400 Complications: none Condition: stable Disposition: PACU Procedure: The patient was taken to the operating room where general anesthesia was administered and found to be adequate. She was prepped and draped in the normal sterile fashion in the dorsal lithotomy position in [facility]. A Campa catheter was placed. A weighted speculum was placed into the vagina and the anterior lip of the cervix was grasped with a single tooth tenaculum. The Zumi uterine manipulator was placed. The weighted speculum was removed. The gloves were changed and attention was turned to the abdomen. A 5 mm left upper quadrant incision was made. Using a 5 mm port with the camera, the port was placed into the abdomen. The abdomen was insufflated. Two low, lateral 5 mm ports were placed on the left and right under direct visualization from the camera. The right tube was grasped and elevated. Using the laparoscopic cautery, the mesosalpinx was divided between the ovary and tube. This was performed the same way on the left. The uteroovarian ligaments as well as the round ligaments were ligated. Attention was then turned to the vaginal portion of the procedure. The weighted speculum was placed into the vagina. The zumi manipulator was removed. The single tooth tenaculum was removed and replaced with the leslye's tenaculum. 10 mL of dilute Pitressin was injected at the vesicovaginal junction. A circumferential incision was made at the vesicovaginal junction and the vaginal mucosa reflected cephalad. The posterior peritoneum was entered sharply with the Metzenbaum scissors and the long weighted speculum replaced. Using the Hai clamps the uterosacral ligaments were clamped cut and suture- ligated. Then sequentially the uterine arteries and cardinal ligaments were clamped cut and suture-ligated. The anterior peritoneum was entered sharply with the metzenbaum scissors. The remaining segement of the utero-ovarian ligaments were clamped cut and suture-ligated bilaterally and the specimen was removed. There was good hemostasis with only mild bleeding from the cuff. The peritoneum was closed with a pursestring using 2-0 Vicryl. The vaginal cuff was closed with 0 Vicryl in a running locked pattern incorporating the uterosacral ligaments into the lateral aspects of the vaginal cuff. The Campa catheter was removed and the cystoscope advanced into the bladder. The patient was given pyridium and bilateral spill was noted. There were no injuries or deficits noted in the bladder. The cystoscope was removed and the Campa was replaced. Vaginal packing was placed for good hemostasis. The gloves and gowns were changed and attention was turned to the abdomen. The ports were closed with 2-0 monocryl with skin glue. The patient tolerated the procedure well. Sponge lap and needle counts were correct x3. She was taken to the recovery room in stable condition.
--- NOTE | 2022-01-07 15:08 | SUR.PHASEI ---
1452 PT TO PACU SLEEPY WITH ORAL AIRWAY IN PLACE, GOOD RESP NOTED, ABDOMEN SOFT WITH 3 SITES TO ABDOMEN WITH SKIN GLUE LINN PAD AND VAGINAL PACKING D/I WALLACE TO DD WITH CLEAR YELLOW/ORANGE URINE TO TUBING AND BAG, STATLOCK TO LT INNER THIGH , SCDS ON BILATERALLY AND WORKING, MONITOR SR WITH NO ECTOPY NOTED, IV TO LT AC WITH NS 200ML UP AT KVO RATE PER GRAVITY, ID BRACELET TO RT WRIST PT ID'D WITH 2 IDENTIFIERS.
--- NOTE | 2022-01-07 15:23 | SUR.PHASEI ---
1515 PT AWAKES AND ORAL AIRWAY OUT, GOOD RESP EFFORT NOTED, PT DENIES PAIN AND NAUSEA, PT QUICKLY BACK TO SLEEP MONITOR UNCHANGED 1524 PT ON RA TRIAL, PT AWAKES TO VERBAL STIIMULI EASILY, PT ROLLDED TO RT SIDE, NO BLEEDING NOTED,IV PATENT, ABDOMEN SOFT NO CHANGES.
--- NOTE | 2022-01-07 15:59 | SUR.PHASEI ---
PT TO OB 10 PT AWAKE ALERT MOVES SELF TO BED WITH NO ASSIST, HANDOFF AT BEDSIDE WITH RN, ABDOMEN SOFT AND UNCHANGED. PT FAMILY UPDATED EARLIER AND NOW WAITING IN WAITING ROOM.
[2022-01-07] MEDS: ketorolac 30 mg/mL INJ IVP ×2 (16:14→21:40)
[2022-01-07] MEDS: HYDROcodone-acetaminophen 5-325 mg Tablet PO (16:14)
--- NOTE | 2022-01-07 16:27 | ANE.PACU2 ---
Inpatient post-anesthesia follow up: Airway intact: Yes Vital signs: Temperature 97.2 F Pulse Rate 77 Respiratory Rate 17 Blood Pressure 121/81 Pulse Oximetry 96 Oxygen Delivery Me thod Room Air Oxygen Flow Rate 6 Fraction of Inspir ed Oxygen Hydration adequate: Yes Nausea and vomiting: No Pain level: 3 Mental status: Baseline
[2022-01-07] MEDS: dextrose 5%-lactated ringers 1,000 ML 125 ML IV (17:07)
[2022-01-07] MEDS: docusate sodium 100 mg Capsule PO (21:40)
[2022-01-08] MEDS: HYDROcodone-acetaminophen 5-325 mg Tablet PO ×2 (01:44→09:08)
[2022-01-08] MEDS: dextrose 5%-lactated ringers 1,000 ML 125 ML IV (01:45)
[2022-01-08 02:04] VITALS: BP 116/68; PULSE 95; RESP 16; TEMP 37.2; O2SAT 96
[2022-01-08 05:30] VITALS: BP 102/65; PULSE 94; RESP 16; TEMP 36.9; O2SAT 98
[2022-01-08] MEDS: ketorolac 30 mg/mL INJ IVP (05:53)
[2022-01-08] MEDS: ceFAZolin 2,000 MG in sodium chloride 0.9% (plus) 50 ML 100 MG IV (05:53)
[2022-01-08 06:29] LABS: Hematocrit 34.3 % (37.0-47.0); Mean Corpuscular HGB Conc 32.1 g/dL (30.0-36.0); Mean Corpuscular Hemoglobin 27.4 pg (28.0-34.0); Mean Corpuscular Volume 85.5 fl (81-99); Mean Platelet Volume 10.9 fL (7.4-10.4); Platelet Count 282 10^3/cmm (130-400); Red Blood Count 4.01 10^6/uL (4.1-5.3); Red Cell Distribution Width 12.5 % (12.1-15.1); White Blood Count 19.8 10^3/uL (4.0-10.0)
--- NOTE | 2022-01-08 08:51 | P.DS_ITS ---
Discharge Providers Date of Admission: 01/07/22 14:52 Date of Discharge: January 08, 2022 Attending Provider at Admission: Jailyn Ye MD Attending Provider at Discharge: Jailyn Ye MD Primary Care Provider: EKTA Dai Diagnoses at Discharge Discharge Diagnosis (1) Uterine prolapse: Status: Acute (2) Abnormal uterine bleeding: Status: Acute Reason for Visit Reason for Visit: Abnormal uterine bleeding Hospital Course Hospital Course The patient was admitted for surgery. She did well postoperatively and was ready for discharge on day #1 Physical Exam Narrative: The patient has not concerns today. pain is well controlled. Campa catheter, as well as packing has been removed. Const: COMMON NORMALS: no acute distress, patient oriented x3, no limitations, healthy appearing, alert and well nourished GENERAL APPEARANCE: cooperative, comfortable, well kempt and well developed ORIENTATION/CONSCIOUSNESS: Yes awake, Yes oriented to person, Yes oriented to place and Yes oriented to time Resp: COMMON NORMALS: normal respiratory effort EFFORT & INSPECTION: Yes able to speak in complete sentences GI: COMMON NORMALS: Soft to palpation and non-tender PALPATION: Yes Soft to palpation Extremity: COMMON NORMALS: normal to inspection and no calf tenderness Neuro: COMMON NORMALS: patient oriented x3 SENSORIUM/ORIENTATION: Yes alert, Yes oriented to person, Yes oriented to place and Yes oriented to time Psych: COMMON NORMALS: mental status grossly normal, Normal thought process present, cooperative, normal affect and speech normal APPEARANCE: Yes well kempt SPEECH: Yes normal speech THOUGHT PROCESS: Normal thought process present Urinary Catheter Management: Latex Free: Cath Placed During This Visit: yes, but has since been removed by the nurse Reason for Continuing Indwelling Catheter: Perioperative Use in Selected Surgeries Urinary Catheter Date of Insertion: 01/07/22 Urinary Catheter Time of Insertion: 13:58 Date Urinary Catheter Removed: 01/08/22 Time Urinary Catheter Discontinued: 05:30 Discharge Data Studies Completed and Pending Pending at discharge Category Date Time Status Urine Culture Routine Lab 01/07/22 10:58 Received Pathology: Surgical [PTH] Routine Pth 01/07/22 14:50 Ordered Laboratory Results WBC 19.8 10^3/uL (4.0-10.0) H 01/08/22 05:30 RBC 4.01 10^6/uL (4.1-5.3) L 01/08/22 05:30 Hgb 11.0 g/dL (11.5-15.3) L 01/08/22 05:30 Hct 34.3 % (37.0-47.0) L 01/08/22 05:30 MCV 85.5 fl (81-99) 01/08/22 05:30 MCH 27.4 pg (28.0-34.0) L 01/08/22 05:30 MCHC 32.1 g/dL (30.0-36.0) 01/08/22 05:30 RDW 12.5 % (12.1-15.1) 01/08/22 05:30 Plt Count 282 10^3/cmm (130-400) 01/08/22 05:30 MPV 10.9 fL (7.4-10.4) H 01/08/22 05:30 Neut % (Auto) 63.3 % 01/07/22 10:40 Lymph % (Auto) 29.7 % 01/07/22 10:40 Darke % (Auto) 5.0 % 01/07/22 10:40 Eos % (Auto) 1.6 % 01/07/22 10:40 Baso % (Auto) 0.2 % 01/07/22 10:40 Neut # (Auto) 5.27 10^3/uL (1.8-7.7) 01/07/22 10:40 Lymph # (Auto) 2.5 10^3/uL (0.8-4.8) 01/07/22 10:40 Darke # (Auto) 0.4 10^3/uL (0.2-0.9) 01/07/22 10:40 Eos # (Auto) 0.1 10^3/uL (0.0-0.8) 01/07/22 10:40 Baso # (Auto) 0.0 10^3/uL (0.0-0.1) 01/07/22 10:40 Nucleated RBC % (auto) 0 % 01/07/22 10:40 Nucleated RBCs # 0.0 /100WBC 01/07/22 10:40 Sodium 140 mmol/L (136-145) 01/07/22 10:40 Potassium 4.2 mmol/L (3.5-5.1) 01/07/22 10:40 Chloride 103 mmol/L (98-107) 01/07/22 10:40 Carbon Dioxide 28 mmol/L (22-29) 01/07/22 10:40 Anion Gap 13.2 (5-19) 01/07/22 10:40 BUN 10 mg/dL (6-20) 01/07/22 10:40 Creatinine 0.6 mg/dL (0.5-0.9) 01/07/22 10:40 GFR Calculation 115.9 mL/min (90-130) 01/07/22 10:40 Glucose 96 mg/dL (65-115) 01/07/22 10:40 Calculated Osmolality 289 mOsm/kg (285-295) 01/07/22 10:40 Calcium 9.8 mg/dL (8.5-10.5) 01/07/22 10:40 Urine HCG, Qual Negative (Negative) 01/07/22 10:58 Blood Type O Positive 01/07/22 10:40 Rho(D) Type Positive 01/07/22 10:40 Antibody Screen Negative 01/07/22 10:40 [place] [address] Operative Note Signed Patient: Zeinab Roque MR#: [id number] : 1990 Operative Report Date of procedure: January 07, 2022 Pre-op diagnosis: Preop Diagnosis ? aub, uterine prolapse ? Post-op diagnosis: same Post-op findings: 6 week sized uterus, normal appearing tubes and ovaries Procedure done: LAVH, bilateral salpingectomy Specimens removed/disposition: uterus, bilateral fallopian tubes to pathology Surgeon: Jailyn Ye Anesthesia: General Estimated blood loss (mL): 100 IV fluids (mL): 800 Urine output (mL): 400 Complications: none Condition: stable Disposition: PACU Procedure: The patient was taken to the operating room where general anesthesia was administered and found to be adequate.? She was prepped and draped in the normal sterile fashion in the dorsal lithotomy position in [facility].? A Campa catheter was placed.? A weighted speculum was placed into the vagina and the anterior lip of the cervix was grasped with a single tooth tenaculum.? The Zumi uterine manipulator was placed. ? The weighted speculum was removed.? The gloves were changed and attention was turned to the abdomen.? A 5 mm left upper quadrant incision was made.? Using a 5 mm port with the camera, the port was placed into the abdomen.? The abdomen was insufflated.? Two low, lateral 5 mm ports were placed on the left and right under direct visualization from the camera.? The right tube was grasped and elevated.? Using the laparoscopic caut rosario, the mesosalpinx was divided between the ovary and tube.? This was performed the same way on the left. ? The uteroovarian ligaments as well as the round ligaments were ligated.? Attention was then turned to the vaginal portion of the procedure.? The weighted speculum was placed into the vagina.? The zumi manipulator was removed.? The single tooth tenaculum was removed and replaced with the leslye's tenaculum.? 10 mL of dilute Pitressin was injected at the vesicovaginal junction.? A circumferential incision was made at the vesicovaginal junction and the vaginal mucosa reflected cephalad.? The posterior peritoneum was entered sharply with the Metzenbaum scissors and the long weighted speculum replaced.? Using the Hai clamps the uterosacral ligaments were clamped cut and suture-ligated.? ? Then sequentially the uterine arteries and cardinal ligaments were clamped cut and suture-ligated.? The anterior peritoneum was entered sharply with the metzenbaum scissors.? The remaining segement of the utero- ovarian ligaments were clamped cut and suture-ligated bilaterally and the specimen was removed.? There was good hemostasis with only mild bleeding from the cuff. ? The peritoneum was closed with a pursestring using 2-0 Vicryl.? The vaginal cuff was closed with 0 Vicryl in a running locked pattern incorporating the uterosacral ligaments into the lateral aspects of the vaginal cuff. The Campa catheter was removed and the cystoscope advanced into the bladder.? The patient was given pyridium and bilateral spill was noted.? There were no injuries or deficits noted in the bladder.? The cystoscope was removed and the Campa was replaced.? Vaginal packing was placed for good hemostasis. The gloves and gowns were changed and attention was turned to the abdomen.? The ports were closed with 2-0 monocryl with skin glue.? The patient tolerated the procedure well.? Sponge lap and needle counts were correct x3.? She was taken to the recovery room in stable condition. Vitals Last Vital Signs Temp 98.4 F 01/08/22 05:30 Pulse 94 01/08/22 05:30 Resp 16 01/08/22 05:30 BP 102/65 01/08/22 05:30 Pulse Ox 98 01/08/22 05:30 O2 Del Method 01/08/22 05:30 O2 Flow Rate 6 01/07/22 15:15 Discharge Plan Discharge Patient Disposition: Home Condition: Stable Prescriptions: New hydrocodone-acetaminophen 5-325 mg Tablet 1 tab PO Q4H PRN (Reason: Moderate To Severe Pain) Qty: 24 0RF docusate sodium 100 mg Capsule 100 mg PO BID Qty: 60 0RF naproxen 500 mg tablet,delayed release (DR/EC) 500 mg PO BID Qty: 60 0RF Discharge Orders: Discharge Order (Routine); Ordered 01/08/22 Ordered By: Jailyn Ye Referrals: Jailyn Ye MD [Physician] - 01/15/22 9:30 am ( [address] Ye on 01/15/22 at 9:30am [address] op [address] Ye on 02/19/22 at 10:00am ) Discharge Diet: Usual diet Discharge Activity: Limit activity as instructed Patient Instructions: Salpingectomy (DC), Laparoscopic Hysterectomy (DC), OB Discharge Report, OB Food/Drug Interaction Guide, Opioid Safety Discharge Attestations Time Spent in Discharge Care*: less than 30 min Quality Metrics Clinical Quality Measures [ No reported AMI, CVA or VTE this stay] Coding Level of Care Code Acute Chg FW DC note Diagnoses Uterine prolapse N81.4 Abnormal uterine bleeding N93.9
[2022-01-08] MEDS: ibuprofen 800 mg tablet PO (09:09)
[2022-01-08] MEDS: docusate sodium 100 mg Capsule PO (09:09)
[2022-01-08 09:15] VITALS: BP 123/80; PULSE 82; RESP 16; TEMP 36.9
== END 2022-01-08 09:40 | disposition home or self-care (01) ==
LOC: OBGYN 14:53
PROVIDERS: Anesthesiology; Admitting Provider Obstetrics & Gynecology; PCP Nurse Practitioner Family; Visit Provider Obstetrics & Gynecology
PROC: 0UT9FZZ Resection of Uterus, Via Natural or Artificial Opening With Percutaneous Endoscopic Assistance (ICD-10-PCS; CPT 58552; principal; 2022-01-07 11:00)
PROC: (CPT 58700; 2022-01-07 11:00)
DX: N81.4 Uterovaginal prolapse, unspecified (principal); N93.9 Abnormal uterine and vaginal bleeding, unspecified; E66.9 Obesity, unspecified; Z68.34 Body mass index [BMI] 34.0-34.9, adult
CPT/HCPCS: 58552; 36415; 80048; 84703; 85025; 85027; 86850; 86900; 87086; 88305; G0378; J1100; J1170; J1200; J1885; J2250; J2405; J2704; J3010; J3490; J7030

== ENCOUNTER → 2022-05-15 16:31 | Outpatient (BNVA) | payer BC, MEDICAID, SELFPAY | PROVIDERS: PCP Nurse Practitioner Family; Visit Provider Family Medicine | DX: R68.89 Other general symptoms and signs (principal); R09.89 Other specified symptoms and signs involving the circulatory and respiratory systems | CPT/HCPCS: 87400 ==

== ENCOUNTER 2022-05-19 07:52 | Outpatient (CLI) | payer BC, MEDICAID, SELFPAY ==
--- NOTE | 2022-05-19 08:00 | US_ITS ---
WS: [id number] Complete ABDOMINAL ULTRASOUND HISTORY: E27.8 - Other specified disorders of adrenal gland COMPARISON: CT 07/02/2021 Liver: 15.0 cm in length. Liver is normal size and echogenicity with no mass or intrahepatic dilatati on. Portal Vein: Normal hepatopetal flow with monophasic waveform. Gallbladder: Prior cholecystectomy. Pancreas: Normal size and echogenicity. CBD: 0.6 cm. Right kidney: 12.0 cm x 5.8 cm x 4.1 cm. No mass, cortical thickening or hydronephrosis. Left kidney: 13.0 cm x 5.2 cm x 3.9 cm. No mass, cortical thickening or hydronephrosis. LEFT adrenal mass of decreased echogenicity measures 2.6 x 2.3 x 2.2 cm and corresponds to the mass s een on a recent CT from 07/02/2021. No increase or change in size. Spleen: 15.1 cm in length. The spleen is enlarged. Spleen is increased in length by approximately 5 c m since the prior study. Abdominal aorta and IVC are within normal limits. No ascites. US/US abdomen complete* [id number] IMPRESSION: 1. Status post cholecystectomy. 2. New, mild splenomegaly. Spleen measures 15.1 cm in length. Increased in ebony gth since 07/02/2021. 3. LEFT adrenal mass measures 2.6 x 2.3 x 2.2 cm. Reidentified and unchanged i n size since the CT of 07/02/2021. Ultrasound cannot adequately characterize an adrenal mass. Recommend MRI or CT evaluation by adrenal protocol.
== END 2022-05-19 07:53 | disposition home or self-care (01) ==
LOC: RAD 07:53
PROVIDERS: PCP Nurse Practitioner Family; Visit Provider Nurse Practitioner Family
DX: E27.8 Other specified disorders of adrenal gland (principal); Z90.49 Acquired absence of other specified parts of digestive tract; R16.1 Splenomegaly, not elsewhere classified
CPT/HCPCS: 76700

== ENCOUNTER → 2022-08-05 15:45 | Outpatient (BNVA) | payer OTHER, BC, SELFPAY | PROVIDERS: PCP Nurse Practitioner Family; Visit Provider Nurse Practitioner Family | DX: E16.2 Hypoglycemia, unspecified (principal); E27.8 Other specified disorders of adrenal gland | CPT/HCPCS: 80053; 83036; 84443; 85025 ==

== ENCOUNTER 2022-08-15 13:06 | Outpatient (CLI) | payer OTHER, BC, SELFPAY ==
--- NOTE | 2022-08-15 13:45 | MR_ITS ---
WS: [id number] MRI ABDOMEN with and without CONTRAST. COMPARISON: Ultrasound 05/19/[address] 07/02/2021 Multiplanar, multisequence imaging is performed with and without contrast. MultiHance 20 mL IV. Normal RIGHT adrenal gland. Well-circumscribed mass within the LEFT adrenal gland measures 2.7 x 2.6 cm. There is mild peripheral enhancement. Loss of signal on the out of phase imaging. Consistent with a benign adenoma. Liver and spleen are normal size. No mass or abnormal signal. Normal appearance of the portal vein. P rior cholecystectomy. No acute inflammatory changes around the gallbladder or duodenum. Negative panc reas and kidneys. Normal aorta. Normal soft tissues. Heart is normal size. No pericardial or pleural effusions. MR/MR abdomen wo/w con* [id number] IMPRESSION: 1. Benign LEFT adrenal adenoma. 2. Otherwise abdomen MRI is normal. No enhancing masses or organomegaly. 3. Prior cholecystectomy.
[2022-08-15] MEDS: gadobenate dimeglumine 20 mL vial IV (15:07)
== END 2022-08-15 13:07 | disposition home or self-care (01) ==
PROVIDERS: PCP Nurse Practitioner Family; Visit Provider Nurse Practitioner Family
DX: D35.02 Benign neoplasm of left adrenal gland (principal)
CPT/HCPCS: 74183; A9577

== ENCOUNTER 2023-01-09 12:36 | Outpatient (CLI) | payer OTHER, BC, MEDICAID, SELFPAY ==
--- NOTE | 2023-01-09 12:49 | XR_ITS ---
WS: [id number] EXAMINATION: XR knee LT 3V* [id number] REASON FOR EXAM: M25.562 - Pain in left knee COMPARISON: 11/03/2019 ORDER DATE: 01/09/2023 12:49 PM FINDINGS: There is no sign of any acute osseous or articular abnormality. There are no specific soft tissue abn ormalities. IMPRESSION: No acute osseous or articular change
== END 2023-01-09 12:37 | disposition home or self-care (01) ==
PROVIDERS: PCP Nurse Practitioner Family; Visit Provider Nurse Practitioner Family
DX: M25.562 Pain in left knee (principal)
CPT/HCPCS: 73562

== ENCOUNTER 2023-04-22 22:45 | Emergency (ER) | payer OTHER, BC, MEDICAID, SELFPAY ==
[2023-04-22 22:47] VITALS: BP 127/86; PULSE 92; RESP 16; TEMP 36.6; O2SAT 98; BMI 34.7
--- NOTE | 2023-04-22 23:02 | ED_ITS ---
HPI - Extremity Problem General: Chief complaint: Extremity Injury, Lower Stated complaint: Left Foot Injury Time Seen by Provider: 04/22/23 23:00 History of Present Illness: 32-year-old female comes in today with c omplaints of left knee pain. Patient reports on Thursday she twisted her knee while walking in the [place]. Since then patient has had persistent anterior left knee pain with some mild swelling. Patient appears nontoxic. Patient has increased pain with flexion of the knee. No significant redness or swelling is noted to the knee. Review of Systems General: Reports: 10 or more systems reviewed and unremarkable except in HPI and below Musc: Reports: joint pain (Left knee pain) PFSH ED PFSH: Medical History Abnormal uterine bleeding Class 1 obesity with body mass index (BMI) of 32.0 to 32.9 in adult Mass of left adrenal gland Uterine prolapse Surgical History History of appendectomy Hx of elbow surgery left Status post laparoscopic cholecystectomy Family History Family/Other Breast cancer Maternal aunt Hypertension Maternal and Paternal aunt Mother Diabetes Father Diabetes Grandmother Stroke Maternal Denies family history of CAD (coronary artery disease) Clotting disorder Hyperlipidemia Chronic kidney disease (CKD) Anesthesia complication Bleeding disorder Lung disease Thyroid disease Social History Smoking and tobacco/nicotine status: never used tobacco/nicotine Alcohol intake: never Substance/Drug Use: never Household members: spouse Marital status: service: No Current occupational status: employed Do you think of yourself as: Straight/Heterosexual Current gender identity: Female Special ulises needs: No Female Reproductive History: Para: 1 Physical Exam Const: COMMON NORMALS: alert HENMT: COMMON NORMALS: normocephalic HEAD & SCALP: normocephalic Resp: COMMON NORMALS: normal respiratory effort Cardio: COMMON NORMALS: regular rate RATE: regular rate Back/Pelvis: COMMON NORMALS: thoracic and lumbar spine normal to inspection Extremity: LEFT LOWER EXTREMITY: Yes knee joint (Patellofemoral tenderness, minimal swelling, no redness) Left knee: Yes inspection, Yes palpation and Yes ROM Neuro: SENSORIUM/ORIENTATION: Yes alert Skin: COMMON NORMALS: turgor normal GENERAL SKIN EXAM: turgor normal Course Vital Signs: Vital signs: Vital Signs Temperature 97.9 F 04/22/23 22:47 Pulse Rate 85 04/22/23 23:57 Respiratory Rate 16 04/22/23 23:57 Blood Pressure 119/78 04/22/23 23:57 Pulse Oximetry 95 04/22/23 23:57 MDM - Extremity (Nontraumatic) Medical Decision Making 32-year-old female comes in today with complaints of left knee pain. On exam patient has some mild swelling to the anterior left knee with some patellofemoral tenderness. Decreased range of motion due to pain. Distal pulses and sensation are intact. Differential diagnosis includes sprain, meniscal injury, contusion, bursitis. X-ray showed no significant abnormalities. Reviewed exam with patient with recommendations for treatment and follow-up. Patient reported understanding agreed to plan. Lab Data Radiology Impressions Knee X-Ray 04/22/23 23:04 IMPRESSION: No acute findings. All radiology interpretation(s) finalized by discharge Discharge Plan Discharge Patient Disposition: Home Clinical Impression: Patellar bursitis Qualifiers: Laterality: left Qualified Code(s): M70.52 - Other bursitis of knee, left knee Condition: Stable Prescriptions: New diclofenac sodium 75 mg tablet,delayed release (DR/EC) 75 mg PO BID Qty: 20 0RF Discharge Orders: Discharge ED (Routine); Ordered 04/22/23 Ordered By: Jarrell Sarkar Referrals: Charmaine Olsen FNP [Primary Care Provider] - Discharge Diet: Usual diet Discharge Activity: Increase activity as tolerated Patient Instructions: Knee Pain (ED) Activity Restrictions/Additional Instructions: Use acetaminophen to help control pain. Take diclofenac 75 mg 1 tablet twice a day for the next 10 days for pain and inflammation. Use ice or heat for further pain relief. Activity as tolerated. Use an elastic wrap for comfort. Follow- up with primary care in 2 weeks for recheck for persistent pain or swelling. Return to ER for worsening symptoms such as high fever, increasing redness and swelling to the knee or lower leg, or new concerns. Coding Level of Care Code ED Dietitian Chief for Julia Lisa
--- NOTE | 2023-04-22 23:04 | XRR_ITS ---
PROCEDURE INFORMATION: Exam: XR Left Knee Exam date and time: 04/22/2023 11:07 PM Age: 32 years old Clinical indication: Injury or trauma; Other: Twisting; Injury details: Patient was walking two days ago and twisted knee. [place] a pop, bears some weight, generalized anterior pain TECHNIQUE: Imaging protocol: Radiologic exam of the left knee. Views: 3 views. COMPARISON: No relevant prior studies available. FINDINGS: Bones/joints: Normal. Soft tissues: Normal. XR/XR knee LT 3V* [id number] IMPRESSION: No acute findings.
[2023-04-22 23:57] VITALS: BP 119/78; PULSE 85; RESP 16; O2SAT 95
== END 2023-04-22 23:59 | disposition home or self-care (01) ==
PROVIDERS: Emergency Provider Nurse Practitioner Family; PCP Nurse Practitioner Family
DX: M70.52 Other bursitis of knee, left knee (principal)
CPT/HCPCS: 73562; 99283; E0114

== ENCOUNTER → 2023-09-01 09:40 | Outpatient (BNVA) | payer BC, MEDICAID, SELFPAY | PROVIDERS: PCP Nurse Practitioner Family; Visit Provider Nurse Practitioner Family | DX: E66.9 Obesity, unspecified (principal) | CPT/HCPCS: 80053; 80061; 84443; 85025 ==

== ENCOUNTER 2024-01-02 18:01 | Emergency (ER) | payer BC, MEDICAID, SELFPAY ==
--- NOTE | 2024-01-02 18:22 | XRR_ITS ---
PROCEDURE INFORMATION: Exam: XR Left Knee Exam date and time: 01/02/2024 6:59 PM Age: 33 years old Clinical indication: Patient HX: C/O worsening pain after feeling a pop in left knee four days ago. ; Additional info: Injury TECHNIQUE: Imaging protocol: Radiologic exam of the left knee. Views: 3 views. COMPARISON: CR XR knee LT 3V* [id number] 04/22/2023 11:07 PM FINDINGS: Bones/joints: Normal. Soft tissues: Normal. XR/XR knee LT 3V* [id number] IMPRESSION: No acute findings.
[2024-01-02 18:31] VITALS: BP 134/84; PULSE 106; RESP 17; TEMP 36.7; O2SAT 99; BMI 32.5
--- NOTE | 2024-01-02 19:56 | ED_ITS ---
Documented by User: DARI Olmstead 01/02/24 20:15 HPI - Extremity Problem General: Chief complaint: Extremity Injury, Lower Stated complaint: Left Knee Injury Time Seen by Provider: 01/02/24 19:03 Source: patient Mode of arrival: ambulatory Limitations: no limitations History of Present Illness: Patient is a 33-year-old female presenting to the emergency department complaining of left knee pain onset 4 days. She was moving furniture on Thursday, states that she had a sudden pop in her left knee and has had diffuse pain and swelling since. The swelling has since gone down, however the pain is only worsened and she is not able to see her primary doctor until this Thursday. No previous injuries or surgeries reported of that left knee. No trauma. No bruising reported, distal neurovascular changes, or other symptoms at this time. Has not taken anything for her pain. Currently rates the pain a 7/10, nonradiating. MD Complaint: joint pain Onset (ago): day(s) Pain Consistency: constant Location: left and knee Severity scale (1-10): 7 Radiation: none Relieving factors: nothing Exacerbating factors: range of motion and weight bearing Associated symptoms: Deny chest pain, fever(s) or rash Related Data Home Medications Medication Instructions Recorded Confirmed cetirizine 10 mg capsule (Zyrtec) 10 mg PO DAILY PRN 09/01/23 11/30/23 Previous Rx's Medication Instructions Recorded phentermine 37.5 mg tablet 37.5 mg PO DAILY #30 tabs 11/30/23 Allergies Allergy/AdvReac Type Severity Reaction Status Date / Time latex Allergy ALGY-Hives Verified 01/02/24 18:34 Review of Systems General: Reports: 10 or more systems reviewed and unremarkable except in HPI and below Const: Denies: fever(s) or chills Card: Denies: chest pain Resp: Denies: dyspnea or productive cough GI: Denies: abdominal pain, nausea, vomiting or diarrhea : Denies: flank pain Musc: Reports: joint pain (Left knee), joint swelling (Left knee) and limited range of motion; Denies: neck pain, back pain, extremity pain, extremity swelling, joint redness, joint warmth or muscle weakness Skin/Breast: Denies: rash Neuro: Denies: headache(s), numbness in extremities or weakness in extremities PFSH ED PFSH: Medical History Uterine prolapse Abnormal uterine bleeding Mass of left adrenal gland Class 1 obesity with body mass index (BMI) of 32.0 to 32.9 in adult Surgical History Status post laparoscopic cholecystectomy History of appendectomy Hx of elbow surgery left Family History Family/Other Breast cancer Maternal aunt Hypertension Maternal and Paternal aunt Mother Diabetes Father Diabetes Grandmother Stroke Maternal Denies family history of CAD (coronary artery disease) Clotting disorder Hyperlipidemia Chronic kidney disease (CKD) Anesthesia complication Bleeding disorder Lung disease Thyroid disease Social History Smoking and tobacco/nicotine status: never used tobacco/nicotine Alcohol intake: never Substance/Drug Use: never Household members: spouse Marital status: service: No Current occupational status: employed Do you think of yourself as: Straight/Heterosexual Current gender identity: Female Special ulises needs: No Female Reproductive History: Para: 1 Physical Exam Const: COMMON NORMALS: no acute distress, patient oriented x3, no limitations, healthy appearing, alert and well nourished HENMT: COMMON NORMALS: normocephalic and atraumatic HEAD & SCALP: normocephalic and atraumatic Neck/C-Spine: COMMON NORMALS: full ROM, supple and no meningeal signs Resp: COMMON NORMALS: normal respiratory effort, No use of accessory muscles and clear to auscultation bilaterally AUSCULTATION: clear to auscultation bilaterally Cardio: COMMON NORMALS: regular rate and regular rhythm RATE: regular rate RHYTHM: regular rhythm Extremity: COMMON NORMALS: capillary refill normal, no joint enlargement and no clubbing, cyanosis or edema NARRATIVE EXTREMITY EXAM: Diffusely tender to palpation of the left knee joint. No obvious signs of trauma or deformity. No bruising. No appreciable joint effusion. No joint laxity on varus valgus stress testing. Negative [place]ki. Negative anterior posterior drawer. Neuro: COMMON NORMALS: patient oriented x3, moves all extremities, no focal motor deficits and no sensory deficits noted SENSORIUM/ORIENTATION: Yes alert MENINGEAL SIGNS: Yes no meningeal signs Skin: COMMON NORMALS: no rashes or lesions noted GENERAL SKIN EXAM: no rashes or lesions noted Course Vital Signs: Vital signs: Vital Signs Temperature 98.1 F 01/02/24 21:01 Pulse Rate 89 01/02/24 21:01 Respiratory Rate 16 01/02/24 21:01 Blood Pressure 131/82 01/02/24 21:01 Pulse Oximetry 100 01/02/24 21:01 Oxygen Delivery Me thod Room Air 01/02/24 18:31 MDM - Extremity (Nontraumatic) Medical Decision Making Patient presented with 4 days of worsening left knee pain, however noted the swelling was going down. The injury was atraumatic, was moving stuff when she felt a pop. No history of previous. X-ray did not demonstrate any acute findings. I do believe she has some sort of strain of unidentified ligament, and would benefit from further evaluation as an outpatient with primary care. She is given shot of Decadron and Toradol here and wrapped in compression bandage. Return precautions given. She has follow-up appointment already scheduled for Thursday and will continue this. Lab Data Radiology Impressions Knee X-Ray 01/02/24 18:22 IMPRESSION: No acute findings. XR interpretation done by ED provider, pending radiology final review ED provider radiology interpretation(s): X-ray left knee. No obvious dislocation or fracture. Discharge Plan Discharge Patient Disposition: Home Clinical Impression: Left knee sprain Qualifiers: Encounter type: initial encounter Involved ligament of knee: unspecified ligament Qualified Code(s): S83.92XA - Sprain of unspecified site of left knee, initial encounter Condition: Stable Prescriptions: No Action Zyrtec 10 mg capsule 10 mg PO DAILY PRN phentermine 37.5 mg tablet 37.5 mg PO DAILY Qty: 30 0RF Rx Instructions: must administer 30 minutes before or 1-2 hours after breakfast Discharge Orders: Discharge ED (Routine); Ordered 01/02/24 Ordered By: Keny Subramanian Referrals: Charmaine Olsen FNP [Primary Care Provider] - Discharge Diet: Usual diet Discharge Activity: Increase activity as tolerated Patient Instructions: Knee Sprain (ED) Activity Restrictions/Additional Instructions: Rest, ice, compression, and elevation of the left knee. Continue follow-up with primary care on Nabil[place] for reevaluation and potential further imaging. Tylenol and ibuprofen for any pain. Return with any new or worsening symptoms. Coding Level of Care Code ED Outsole Cementer Machine for Chg Fwd Documented by User: Vince Albert DO 01/03/24 01:58 HPI - Extremity Problem General: Chief complaint: Extremity Injury, Lower Stated complaint: Left Knee Injury Time Seen by Provider: 01/02/24 19:03 Related Data Home Medications Medication Instructions Recorded Confirmed cetirizine 10 mg capsule (Zyrtec) 10 mg PO DAILY PRN 09/01/23 11/30/23 Previous Rx's Medication Instructions Recorded phentermine 37.5 mg tablet 37.5 mg PO DAILY #30 tabs 11/30/23 Allergies Allergy/AdvReac Type Severity Reaction Status Date / Time latex Allergy ALGY-Hives Verified 01/02/24 18:34 PFSH ED PFSH: Medical History Uterine prolapse Abnormal uterine bleeding Mass of left adrenal gland Class 1 obesity with body mass index (BMI) of 32.0 to 32.9 in adult Surgical History Status post laparoscopic cholecystectomy History of appendectomy Hx of elbow surgery left Family History Family/Other Breast cancer Maternal aunt Hypertension Maternal and Paternal aunt Mother Diabetes Father Diabetes Grandmother Stroke Maternal Denies family history of CAD (coronary artery disease) Clotting disorder Hyperlipidemia Chronic kidney disease (CKD) Anesthesia complication Bleeding disorder Lung disease Thyroid disease Social History Smoking and tobacco/nicotine status: never used tobacco/nicotine Alcohol intake: never Substance/Drug Use: never Household members: spouse Marital status: service: No Current occupational status: employed Do you think of yourself as: Straight/Heterosexual Current gender identity: Female Special ulises needs: No Course Vital Signs: Vital signs: Vital Signs Temperature 98.1 F 01/02/24 21:01 Pulse Rate 89 01/02/24 21:01 Respiratory Rate 16 01/02/24 21:01 Blood Pressure 131/82 01/02/24 21:01 Pulse Oximetry 100 01/02/24 21:01 Oxygen Delivery Me thod Room Air 01/02/24 18:31 MDM - Extremity (Nontraumatic) Medical Decision Making Patient presented with 4 days of worsening left knee pain, however noted the swelling was going down. The injury was atraumatic, was moving stuff when she felt a pop. No history of previous. X-ray did not demonstrate any acute findings. I do believe she has some sort of strain of unidentified ligament, and would benefit from further evaluation as an outpatient with primary care. She is given shot of Decadron and Toradol here and wrapped in compression bandage. Return precautions given. She has follow-up appointment already scheduled for Thursday and will continue this. This patient was originally seen by Mr. Marilynn PA-C.? I agree with his history, evaluation, and treatment. Lab Data Radiology Impressions Knee X-Ray 01/02/24 18:22 IMPRESSION: No acute findings. Discharge Plan Discharge Patient Disposition: Home Clinical Impression: Left knee sprain Qualifiers: Encounter type: initial encounter Involved ligament of knee: unspecified ligament Qualified Code(s): S83.92XA - Sprain of unspecified site of left knee, initial encounter Condition: Stable Prescriptions: No Action Zyrtec 10 mg capsule 10 mg PO DAILY PRN phentermine 37.5 mg tablet 37.5 mg PO DAILY Qty: 30 0RF Rx Instructions: must administer 30 minutes before or 1-2 hours after breakfast Discharge Orders: Discharge ED (Routine); Ordered 01/02/24 Ordered By: Keny Subramanian Referrals: Charmaine Olsen FNP [Primary Care Provider] - Discharge Diet: Usual diet Discharge Activity: Increase activity as tolerated Patient Instructions: Knee Sprain (ED) Activity Restrictions/Additional Instructions: Rest, ice, compression, and elevation of the left knee. Continue follow-up with primary care on Thursday for reevaluation and potential further imaging. Tylenol and ibuprofen for any pain. Return with any new or worsening symptoms. Coding Level of Care Code ED Outsole Cementer Machine for Julia Lisa
[2024-01-02] MEDS: dexamethasone 10 mg/mL INJ IM (20:16)
[2024-01-02] MEDS: ketorolac 60 mg/2 mL INJ IM (20:16)
[2024-01-02 21:01] VITALS: BP 131/82; PULSE 89; RESP 16; TEMP 36.7; O2SAT 100
== END 2024-01-02 20:21 | disposition home or self-care (01) ==
PROVIDERS: Emergency Provider Physician Assistant; PCP Nurse Practitioner Family
DX: S83.92XA Sprain of unspecified site of left knee, initial encounter (principal); X58.XXXA Exposure to other specified factors, initial encounter
CPT/HCPCS: 73562; 96372; 99284; J1100; J1885

== ENCOUNTER 2024-01-15 08:21 | Outpatient (CLI) | payer BC, MEDICAID, SELFPAY ==
--- NOTE | 2024-01-15 08:30 | USCV_ITS ---
Zeinab Roque Age: 33 Gender: F : 1990 Exam Date: 01/15/2024 08:27 Ordering Phys: Charmaine Olsen EQUAL OPPORTUNITY REPRESENTATIVE Technologist: OTF [place]am [place] [facility] [place] Indication: LLE swelling PROCEDURES: Venous duplex imaging was performed in only the left lower extremity. The following venous structures were evaluated: common femoral vein, profunda vein, proximal portion of the greater saphenous vein, superficial femoral vein, and the popliteal vein. In addition, the posterior tibial and peroneal trunk were evaluated. Serial compression, augmentation maneuvers, and spectral Doppler flow evaluation were performed. FINDINGS: Normal 2-D Doppler and augmentation and compressibility throughout the lower extremity venous structures. Additional imaging through the proximal calf veins also reveals no thrombus. Limited evaluation of the greater saphenous vein is patent with no thrombus. CONCLUSIONS No evidence of left lower extremity DVT. Shashi Ramirez MD (Electronically Signed) Final Date: 15 January 2024 13:59 S
== END 2024-01-15 08:22 | disposition home or self-care (01) ==
LOC: RAD 08:21
PROVIDERS: PCP Nurse Practitioner Family; Visit Provider Nurse Practitioner Family
DX: M79.89 Other specified soft tissue disorders (principal)
CPT/HCPCS: 93971

== ENCOUNTER 2024-01-22 07:11 | Outpatient (CLI) | payer BC, MEDICAID, SELFPAY | END 2024-01-22 07:12 | disposition home or self-care (01) | LOC: RAD 07:29 | PROVIDERS: PCP Nurse Practitioner Family; Visit Provider Nurse Practitioner Family | DX: R73.9 Hyperglycemia, unspecified (principal); L65.9 Nonscarring hair loss, unspecified | CPT/HCPCS: 80053; 82306; 82607; 83036; 83735; 84439; 84443; 85025 ==

== ENCOUNTER → 2024-02-23 08:22 | Outpatient (BNVA) | payer BC, MEDICAID, SELFPAY | PROVIDERS: PCP Nurse Practitioner Family; Visit Provider Student in an Organized Health Care Education/Training Program | DX: M25.562 Pain in left knee (principal); S83.8X2A Sprain of other specified parts of left knee, initial encounter; X50.9XXA Other and unspecified overexertion or strenuous movements or postures, initial encounter | CPT/HCPCS: 73560; 73565 ==

== ENCOUNTER 2024-05-05 15:37 | Outpatient (CLI) | payer BC, MEDICAID, SELFPAY ==
--- NOTE | 2024-05-05 16:00 | MR_ITS ---
WS: [id number] MRI LEFT KNEE HISTORY: left knee injury/meniscal tear COMPARISON: Radiograph 02/23/2024 Anterior cruciate ligament: Intact. Posterior cruciate ligament: Intact. Medial collateral ligament: Intact. Posterior lateral corner structures: Intact. Medial menisci: Intact. Normal signal, size and shape. Lateral meniscus: Intact. Normal signal, size and shape. Extensor mechanism: Distal quadriceps tendon and patellar tendons are intact. Fluid and soft tissue: No joint effusion. Tiny Weinstein's cyst. Osseous and articular structures: Patellofemoral compartment: Very slight lateral subluxation of the patella. There is no marrow edema. Patellar retinaculum are intact. Cartilage is preserved. Medial compartment: Normal. Lateral compartment: Normal. There is a very small amount of edema in the soft tissues adjacent to the medial femoral condyle. The re is a small amount of fluid just deep to the medial patellar retinaculum adjacent to the femoral co ndyle. MR/MR knee LT wo con* [id number] IMPRESSION: 1. No ACL or meniscal tear. 2. Minimal soft tissue contusion adjacent to the medial femoral condyle. There is also a small amount of fluid deep to the medial patellar retinaculum. Patton lar retinaculum appears otherwise intact. 3. No marrow edema or fracture.
== END 2024-05-05 15:38 | disposition home or self-care (01) ==
PROVIDERS: PCP Nurse Practitioner Family; Visit Provider Physician Assistant
DX: S80.02XA Contusion of left knee, initial encounter (principal); X58.XXXA Exposure to other specified factors, initial encounter
CPT/HCPCS: 73721

== ENCOUNTER → 2024-08-17 13:23 | Outpatient (BNVA) | payer BC, MEDICAID, SELFPAY | PROVIDERS: PCP Nurse Practitioner Family; Visit Provider Nurse Practitioner Family | DX: R73.03 Prediabetes (principal) | CPT/HCPCS: 80053; 80061; 82306; 83036; 84443; 85025 ==

== ENCOUNTER → 2024-11-22 12:34 | Outpatient (BNVA) | payer BC, MEDICAID, SELFPAY | PROVIDERS: PCP Nurse Practitioner Family; Visit Provider Nurse Practitioner Family | DX: R73.03 Prediabetes (principal) | CPT/HCPCS: 80053; 82306; 83036 ==

== ENCOUNTER → 2025-02-15 11:10 | Outpatient (BNVA) | payer BC, MEDICAID, SELFPAY | PROVIDERS: PCP Nurse Practitioner Family; Visit Provider Nurse Practitioner Family | DX: E55.9 Vitamin D deficiency, unspecified (principal); R73.03 Prediabetes; E66.9 Obesity, unspecified | CPT/HCPCS: 80053; 82306; 82607; 83036 ==